=== PATIENT | female | born 1995 | race Caucasian/White ===

== ENCOUNTER 2022-10-14 21:09 | Emergency (ER) | payer OTHER, SELFPAY ==
[2022-10-14 21:15] VITALS: BP 122/79; PULSE 111; TEMP 36.8; O2SAT 98; BMI 20.7
--- NOTE | 2022-10-14 21:25 | ED_ITS ---
HPI - General Adult General Time Seen by Provider: 21:26 Date Seen: 10/14/22 Chief complaint: Sore Throat Stated complaint: sore throat, a lot of pressure in her head. Time Seen by Provider: 10/14/22 21:17 Source: patient and RN notes reviewed Mode of arrival: ambulatory Limitations: no limitations History of Present Illness HPI narrative: Patient is a very pleasant 27-year-old female coming in with a severe sore throat. She states it is hurting to swallow. This morning she just started with a scratchy throat. She has maybe felt chilled during the day but not clear if she has had fevers. She has been in and out of cars, going in out of vehicles into the cold. Has taken a total of 4 Tylenol during the day. No nausea or vomiting, no abdominal pain, is not coughing. She feels pressure in her head. She is getting some postnasal drainage. She confirmed negative status this morning. She and her significant other do not want to conceive until they are . Is on control as well. Related Data Home Medications Medication Instructions Recorded Confirmed control 10/14/22 sumatriptan succinate 100 mg 100 mg PO Q2H PRN 10/14/22 10/14/22 tablet (Imitrex) sumatriptan succinate 6 mg/0.5 mL 6 mg subcut Q1-4H PRN 10/14/22 10/14/22 subcutaneous solution (Imitrex) Allergies Allergy/AdvReac Type Severity Reaction Status Date / Time No Known Drug Allergies Allergy Verified 10/14/22 21:21 Review of Systems Status of ROS: Reports: 6 or more systems reviewed and unremarkable except as noted in History and below Exam Const: Vital Signs, click to edit/add: Vital Signs - 24 hr 10/14/22 21:15 Temperature 98.2 F Pulse Rate [Pulse Oximeter] 111 H Blood Pressure [Ri ght Upper Arm] 122/79 Pulse Oximetry 98 Oxygen Delivery Me thod Room Air Documenting provider has reviewed patient's vital signs: yes Common normals: no apparent distress (but uncomfortable with swallowing, speech otherwise normal), oriented x3, no limitations, healthy appearing and alert General appearance: cooperative, comfortable, well kempt and well developed Nutritional appearance: thin HENMT: Common normals: normocephalic, head/scalp atraumatic, hearing grossly normal bilaterally, external ears normal, external nose normal, nasal mucous membranes and turbinates normal, moist oral mucous membranes, oropharynx normal, dentition normal and gingiva normal Head and scalp: normocephalic and atraumatic Nose: external nose normal and nasal mucous membranes and turbinates normal External ear: external ears normal Other: Maybe some minimal tonsillar erythema but certainly not any significant enlargement, no exudates. Eye: Common normals: PERRL, EOMs intact bilaterally, conjunctivae normal and no scleral icterus Conjunctiva: conjunctiva(e) normal Pupil: PERRL Neck & C-Spine: Common normals: full ROM, no lymphadenopathy, supple, no meningeal signs, no JVD and thyroid normal Thyroid: thyroid normal Resp: Common normals: normal respiratory effort, no retractions, no use of accessory muscles and clear to auscultation bilaterally Auscultation: clear to auscultation bilaterally Cardio: Common normals: no JVD, regular rate, regular rhythm, S1 normal heart sound, S2 normal heart sound, no gallops, no clicks and no murmurs Rate: regular rate Rhythm: regular rhythm Heart sounds: S1 normal and S2 normal Neuro: Common normals: oriented x3 Sensorium/orientation: alert Meningeal signs: no meningeal signs Psych: Appearance: well kempt Course Course Hospital Course: Patient states her throat is quite uncomfortable. She is no concerning clinical features tonsillitis. I will establish an IV, give her L of normal saline and 15 mg IV Toradol. Nursing staff collected strep DNA as well as the viral triple swab on arrival. Will do some basic blood work since we are initiating an IV for her. Reevaluation(s) Reevaluation #1: Reviewed with patient that her strep is negative, white blood count is elevated. I am awaiting her triple swab but presume this will be negative. With her elevated white count and clinical course, at this time I suspect she is developing tonsillitis. She is starting to have some almost tremors in her legs. She is starting to feel warm. I do wonder if she is maybe perhaps going to spike a temperature. She is almost done with the IV fluids, does not feel chilled, does not feel that she is chilled and that she is shivering at all. If triple swab is negative, will proceed with an IV dose of antibiotics, Unasyn 3 g and dexamethasone 10 mg IV. Time: 22:28 Reevaluation #2: Have reviewed lab results with patient. I do believe we are dealing with acute bacterial tonsillitis. This time she does not require any imaging. We will do plan as outlined before. She would like prescription of Augmentin from [facility] which we will provide. Time: 22:43 Vital Signs Vital signs: Initial Vital Signs Temperature 98.2 F 10/14/22 21:15 Temperature Source Temporal Artery Scan 10/14/22 21:15 Pulse Rate 111 H 10/14/22 21:15 Blood Pressure 122/79 10/14/22 21:15 Blood Pressure Mean 93 10/14/22 21:15 Blood Pressure Position Sitting 10/14/22 21:15 Pulse Oximetry 98 10/14/22 21:15 Oxygen Delivery Method 10/14/22 21:15 Vital Signs Temperature 98.2 F 10/14/22 21:15 Pulse Rate 111 H 10/14/22 21:15 Blood Pressure 122/79 10/14/22 21:15 Pulse Oximetry 98 10/14/22 21:15 Oxygen Delivery Method 10/14/22 21:15 Temperature 98.2 F 10/14/22 21:15 Pulse Rate 111 H 10/14/22 21:15 Blood Pressure 122/79 10/14/22 21:15 Pulse Oximetry 98 10/14/22 21:15 Oxygen Delivery Method 10/14/22 21:15 Medical Decision Making Lab Data Lab results reviewed: Yes I reviewed the patient's lab results Labs: Lab Results 10/14/22 10/14/22 10/14/22 Range/Units 21:25 21:25 21:45 WBC 14.81 H (4.50-11.00) K/uL RBC 4.54 (4.00-5.20) m/uL Hgb 13.7 (12.0-16.0) gm/dL Hct 39.0 (33.0-51.0) % MCV 86 (80-100) fL MCH 30 (26-34) pg MCHC 35 (32-36) gm/dL RDW Coeff of Isidro 11.6 (11.5-15.5) % Plt Count 338 (140-440) K/uL Neut % (Auto) 71.4 (42.0-72.0) % Lymph % (Auto) 20.2 (20-44) % Mckenzie % (Auto) 6.6 (0.0-11.0) % Eos % (Auto) 1.0 (0.0-7.0) % Baso % (Auto) 0.3 (0.0-3.0) % Neut # (Auto) 10.60 H (1.7-7.0) K/uL Lymph # (Auto) 3.00 H (0.90-2.90) K/uL Mckenzie # (Auto) 1.00 H (0.00-0.90) K/UL Eos # (Auto) 0.10 (0.00-0.50) K/uL Baso # (Auto) 0.00 (0.00-0.30) K/uL Abs Immat Gran (auto) 0.10 (0.00-0.30) K/uL Imm/Tot Granulo (auto) 0.5 % Sodium (135-149) mmol/L Potassium (3.6-5.1) mmol/L Chloride (96-114) mmol/L Carbon Dioxide (20-32) mmol/L BUN (5-24) mg/dL Creatinine (0.5-1.5) mg/dL Estimated Creat Clear Estimated GFR ml/min Glucose (60-115) mg/dL Calcium (8.4-10.6) mg/dL SARS-CoV-2 (PCR) Negative SARS-CoV-2 (Negative) Monoscreen (Negative) Influenza Type A (PCR) Negative PCR FLU A (Negative) Influenza Type B (PCR) Negative PCR FLU B (Negative) RSV (PCR) Negative PCR RSV (Negative) Group A Strep DNA NOT DETECTED (Not Detectd) 10/14/22 10/14/22 Range/Units 21:45 21:45 WBC (4.50-11.00) K/uL RBC (4.00-5.20) m/uL Hgb (12.0-16.0) gm/dL Hct (33.0-51.0) % MCV (80-100) fL MCH (26-34) pg MCHC (32-36) gm/dL RDW Coeff of Isidro (11.5-15.5) % Plt Count (140-440) K/uL Neut % (Auto) (42.0-72.0) % Lymph % (Auto) (20-44) % Mckenzie % (Auto) (0.0-11.0) % Eos % (Auto) (0.0-7.0) % Baso % (Auto) (0.0-3.0) % Neut # (Auto) (1.7-7.0) K/uL Lymph # (Auto) (0.90-2.90) K/uL Mckenzie # (Auto) (0.00-0.90) K/UL Eos # (Auto) (0.00-0.50) K/uL Baso # (Auto) (0.00-0.30) K/uL Abs Immat Gran (auto) (0.00-0.30) K/uL Imm/Tot Granulo (auto) % Sodium 142 (135-149) mmol/L Potassium 4.4 (3.6-5.1) mmol/L Chloride 108 (96-114) mmol/L Carbon Dioxide 26 (20-32) mmol/L BUN 11 (5-24) mg/dL Creatinine 0.6 (0.5-1.5) mg/dL Estimated Creat Clear 131.37 Estimated GFR 128 ml/min Glucose 91 (60-115) mg/dL Calcium 9.3 (8.4-10.6) mg/dL SARS-CoV-2 (PCR) (Negative) Monoscreen Negative (Negative) Influenza Type A (PCR) (Negative) Influenza Type B (PCR) (Negative) RSV (PCR) (Negative) Group A Strep DNA (Not Detectd) Critical Care Time Critical Care Time Critical Care Time: No Discharge Plan Discharge Clinical Impression: Acute tonsillitis Patient Disposition: Home, Self-Care Condition: Stable Instructions: Tonsillitis (ED) Additional Instructions: Start oral antibiotic in the morning. Alternate Tylenol and ibuprofen every 3-4 hours as needed for pain or fever control, follow bottle directions for dosing. If you are not improving over the next few days, are worsening at any point with increasing difficulty swallowing, increased throat swelling or pain, do need to be re-evaluated. Try to take frequent small sips of fluids to stay hydrated. Note provided to be off work tomorrow. Recommend follow-up with primary care provider within the next week for recheck. If on going issues or complications, may need to see ENT. Activity Level: Activity as Tolerated Discharge Diet: Regular Prescriptions: No Action control sumatriptan succinate [Imitrex] 100 mg tablet 100 mg PO Q2H PRN Rx Instructions: do not exceed 2 doses per 24 hrs sumatriptan succinate [Imitrex] 6 mg/0.5 mL solution 6 mg subcut Q1-4H PRN Rx Instructions: do not exceed 2 doses in a 24 hour period Stand Alone Forms: MyHealth Info Instructions
[2022-10-14] MEDS: 0.9 % SODIUM CHLORIDE 1000 ml 1,000 ML 500 ML IV (21:56)
[2022-10-14] MEDS: KETOROLAC 15 MG/ML inj IVP (21:56)
[2022-10-14 22:01] LABS: Basophils Percent Auto 0.3 % (0.0-3.0); Hemoglobin* 13.7 gm/dL (12.0-16.0); Immature Granulocytes Pct Auto 0.5 %; Lymphocytes Percent Auto 20.2 % (20-44); Mean Corpuscular HGB Conc 35 gm/dL (32-36); Mean Corpuscular Hemoglobin 30 pg (26-34); Mean Corpuscular Volume 86 fL (80-100); Monocytes Percent Auto 6.6 % (0.0-11.0); Neutrophils Percent Auto 71.4 % (42.0-72.0); Platelet Count* 338 K/uL (140-440); RDW Coefficient of Variation % 11.6 % (11.5-15.5); Red Blood Count 4.54 m/uL (4.00-5.20); White Blood Count* 14.81 K/uL (4.50-11.00)
--- OUTSIDE RECORDS SUMMARY | 2022-10-14 22:03 | XMS_ITS | Encounter Summary ---
:1995 [facility] Address [address] [place] [address] Care Team Providers Name Role Phone Pcp, Pt Declines MD Primary Care Provider Reason for Referral Consult/Transfer Care (Routine) - Closed Specialty Diagnoses / Procedures Referred By Contact Refer red To Contact Diagnoses Kourtney Lovelace MD, PhD [address] [place], [place] [address] Referral ID Status Reason Start Date Expiration Date Visits Requ ested Visits Authorized [id number] Closed 03/11/2021 06/10/2022 1 1 Scheduling Instructions Your provider has recommended an appoint ment with [facility]. You may call [phone] to schedule your appoi ntment. We suggest you call your health insurance company about your coverage an d benefits for this appointment. Reason for Visit Reason Comments NAIL PROBLEM Consult/Transfer Care (Routine) - Closed Specialty Diagnoses / Procedures Referred By Contact Refer red To Contact Dermatology Diagnoses Fingernail problem Kourtney Obrien MD, PhD [address] [facility] [address] Phone: Fax: Referral ID Status Reason Start Date Expiration Date Visits Requ ested Visits Authorized [id number] Closed 02/03/2021 05/05/2022 1 1 Encounter Details Date Type Department Care Team Description 03/04/2021 Office Visit [facility] [address] Kourtney Obrien MD, Fib rickie (Primary Dx) Dermatology PhD [address] [facility] [address] [place] [id number] [phone] (Wo rk) Social History Tobacco Use Types Packs/Day Years Used Date Smoking Tobacco: Never Alcohol Use Standard Drinks/Week Comments Yes 0 (1 standard drink = 0.6 oz pure alcoho l) occasional Sex Assigned at Date Recorded Not on file documented as of this encounter Patient Instructions Patient InstructionsKourtney Obrien MD, PhD - 03/04/2021 9:30 AM CDT After visit instructions for Chronic Paronychia Apply betamethasone cream once daily to nail folds. Stop betamethasone cream when red/puffiness is completely gone- usually takes 2- 6 weeks. Soak nails in vinegar for 15 min every night prior to applying the medicated cream. May use straightvinegar or 1 cap/1 cup water. While safe to do, it is ok to stop this step when you see the nail cuticle has re-grown and makes a nice, even seal between your finger and the nail plate. documented in this encounter Progress Notes Kourtney Obrien MD, PhD - 03/04/2021 9:30 AM CDT Problem List None Chief Complaint Patient presents with ??? NAIL PROBLEM History of Present Illness: Chyna Esquivel is a 25 y.o. female who presents for visit today for a nail problem. Patient is new to [facility]. The patient was referred to dermatology by Dr. Gallo for possible recommendations any less invasive treatment options worth exploring before proceeding with matrixectomy. Today, the patient reports a left thumbnail problem that she has had for 2-3 years. It is painful today and catches on everything. It drains intermittently, at which time an infection will often set in. At that time, she will usually rip the spike off which helps for about 2 weeks. However, it will then come back and be more severe. No other acute skin concerns. Past Medical History: Chronic nail problem. Social History: She is a high school teacher. She is moving to [facility] this summer 2020 with her boyfriend, who got ajjudy there. Medications: The patient has a current medication list which includes the following prescription(s): betamethasone dipropionate, lorazepam, nortrel (), sumatriptan, and sumatriptan. Allergies: The patient is allergic to latex, adhesive, lubricants, and morphine. Review of Systems: Generally feels well without other skin concerns today. Physical Examination: General: Well-appearing female, in no distress, alert and oriented. Skin: Exam focused to the left thumb. Pertinent findings included below. Exam otherwise normal Combined Exam and Specific Assessment and Plan 1. 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 Prior history of acute paronychia but not present today - 2 mm thin finger like spicule extending along the lateral aspect of the nail fold on the left thumb - mild erythema and swelling at the base of the proximal nail fold without drainage or evidence of secondary abscess. Discussed etiology and expectations at length with the patient. Reviewed with her that these typically are recurrent, and hand recurred even after surgical resection. She is aware that any procedure ofthe plate would necessarily within the overall width of her nail plate are . We reviewed the risks and benefits of surgery and the patient understands that there is still of risk of recurrence with surgery, however, it is much lower. She also understands that there will be nail damage from the surgery, but she would prefer this over the chronic pain. Additionally, based on her history and clinical appearance, the likelihood of skin cancer is very low, however, the benefit of removing what is expected to be a benign nature is confirming its histological nature. We discussedthat she would prefer to get into surgery as soon as possible, before the nail becomes infected. If Dr. Gallo does not have an opening in the coming weeks, she will call and I will place a referralto hand surgery to see if they can get her in sooner. Photos were obtained today. In the meantime, Iadvised she soak her thumb in white or apple cider vinegar plain or in a 1:1 ratio with water daily for 15 minutes to prevent infection. I also started her on betamethasone dipropionate 0.05% augmentedcream to use qd on the affected nail fold. Discussed risks of topical steroids including striae, atrophy, and telangectasias. Follow up: Return to clinic prn. Orders Placed: Orders Placed This Encounter ??? betamethasone dipropionate (DIPROLENE-AF) 0.05 % AUGMENTED cream Scribe Disclosure: I, Sherri Kassy Munroe, am serving as a scribe to document services personally performed by Kourtney Obrien MD, PhD at this visit, based upon the providers statements to me. Entered on 03/04/21 at 10:06 AM. This note was dictated using voice recognition software. There may be sound- alike and/or punctuationerrors. Shannan Cheek RN - 03/04/2021 9:30 AM CDT Images from the original note were not included. Sharon Cherry RN - 03/04/2021 9:30 AM CDT Patient called and would like referral placed to hand surgery within the [facility] system. Order pended. documented in this encounter Plan of Treatment Scheduled Referrals Name Type Priority Associated Diagnoses Order S chedule Hand Surgery Referral Routine Fibroma Ordered: 2020 Consult-Adult/Peds documented as of this encounter Visit Diagnoses Diagnosis Fibroma - Primary Other benign neoplasm of connective and other soft tissue of unspecified site documented in this encounter Care Teams Cnc Technician Relationship Specialty Start Date End Date Pcp, Khanh Acevedo MD PCP - General 03/04/21 [place] [address] documented as of this encounter
--- OUTSIDE RECORDS SUMMARY | 2022-10-14 22:03 | XMS_ITS | Clinical Summary ---
:1995 Author Organization [facility] Address [address] [place] [address] Care Team Providers Name Role Phone Pcp, Pt Declines MD Primary Care Provider Source Comments You are receiving this document as you are listed as the primary care provider,follow-up provider, or the patient has been referred to you for consultation.This is in compliance with the Medicare and Medicaid EHR Incentive Program,which states Providers who transition their patient to another setting of careor provider of care or refers their patient to another provider of care shouldprovide summarycare record for each transition of care or referral. BuyerCurious Allergies Active Allergy Reactions Severity Noted Date Comments Adhesive Rash 12/20/2019 Latex Hives High 12/20/2019 Lubricants Rash 12/20/2019 Petroleum jelly ok Morphine Other, see comments 12/20/2019 hallucin ates Medications Medication Sig Dispensed Refills Start Date End Date Status SUMAtriptan Take 100 mg by mouth 0 Active (IMITREX) 100 MG as needed for tablet Migraine. SUMAtriptan Inject 6 mg 0 Active (IMITREX) 6 MG/0.5ML subcutaneously once injection as needed. LORazepam (ATIVAN) Take 0.5 mg by mouth 0 12/16/2020 Active 0.5 MG tablet daily. NORTREL 1/35, 21, 0 02/11/2021 A ctive 1-35 MG-MCG tablet betamethasone Apply topically 50 g 0 03/04/2021 Active dipropionate daily. To affected (DIPROLENE-AF) 0.05 nail fold, until % AUGMENTED cream redness. Social History Tobacco Use Types Packs/Day Years Used Date Smoking Tobacco: Never Alcohol Use Standard Drinks/Week Comments Yes 0 (1 standard drink = 0.6 oz pure alcoho l) occasional Sex Assigned at Date Recorded Not on file Last Filed Vital Signs Vital Sign Reading Time Taken Comments Blood Pressure 100/68 12/20/2019 9:39 PM [facility] Pulse 74 12/20/2019 9:37 PM [facility] Temperature 38.8 ??C (101.9 ??F) 12/20/2019 9:37 PM [facility] Respiratory Rate 16 12/20/2019 9:37 PM [facility] Oxygen Saturation 96% 12/20/2019 9:37 PM [facility] Inhaled Oxygen Concentration - - Weight 56.7 kg (125 lb) 12/20/2019 8:52 PM [facility] Height - - Body Mass Index - - Plan of Treatment Health Maintenance Due Date Last Done Comments Cervical Cancer Screening Due 1995 Chlamydia 1995 Hep C Screening (Preventive 1995 Services) HepB (1) 1997 COVID-19 Vaccine (#1) 1997 HPV Vaccine (1 - 2-dose series) 2008 HIV Screening (Preventive 2013 Services) Adult Preventive Visit 2015 DTaP/Tdap/Td (1 - Tdap) 2016 Influenza (#1) 2022 Zoster/Shingles (1 of 2) 2047 HepA Aged Out No longer eligib le based on patient's age to complete this topic Hib Aged Out No longer eligib le based on patient's age to complete this topic IPV (Polio) Aged Out No longer eligib le based on patient's age to complete this topic MCV4 Aged Out No longer eligib le based on patient's age to complete this topic Pneumococcal Aged Out No longer eligib le based on patient's age to complete this topic Insurance Payer Benefit Plan Subscriber ID Effective Phone Address Typ e / Group Dates [facility] [id number] 2020-Isabella [phone] [facility] [address] [place] [id number] [place] [id number] Chyna Esquivel Personal/Family Self 1995 [id number] [place] [id number] Care Teams Dextrine Mixer Relationship Specialty Start Date End Date Pcp, Khanh Acevedo MD PCP - General 03/04/21 [place] [address]
--- OUTSIDE RECORDS SUMMARY | 2022-10-14 22:03 | XMS_ITS | Encounter Summary ---
:1995 Author Organization [facility] Address [address], [place] [address] Care Team Providers Name Role Phone Pcp, Pt Declines Primary Care Provider Reason for Visit Reason Onset Date Comments Other FYI 03/11/2021 Encounter Details Date Type Department Care Team Description 03/11/2021 Telephone [facility] Kourtney Obrien MD, PhD Other; [facility] [address] [facility] [facility] [address] [place] [address] [place], [place] [address] [phone] Social History Tobacco Use Types Packs/Day Years Used Date Smoking Tobacco: Never Alcohol Use Standard Drinks/Week Comments Yes 0 (1 standard drink = 0.6 oz pure alcoho l) occasional Sex Assigned at Date Recorded Not on file documented as of this encounter Nursing Notes Shannan Cheek RN - 03/11/2021 3:53 PM CDT Called and discussed. Pt said doing the procedure with Dr. Gallo is not an option. Referral was placed to hand surgery. Pt understands that it will take 2 - 3 days before getting a call to schedule. Pt was given the number to orthopedics to call if she has not heard by Wednesday. Kourtney Obrien MD, PhD - 03/11/2021 3:29 PM CDT I'm not sure I understand the message. Is she looking for a appointment here with derm for discomfort? I'm happy to work her in. If she is really asking for the definitive surgery on her thumb, the hand surgery consult was already placed this am. Lucina Olguin RN - 03/11/2021 2:53 PM CDT Derm Triage of Telephone Call Last Derm Visit: Date: 03/04/2021 Clinician: Dr. Obrien Follow-up interval per last visit note: Return to clinic PRN Next Derm Visit: There are no future appointments scheduled for this specialty. Date(s) of failed/cancelled Derm appt: 02/04/2021 Name of Caller: Chyna Situation: : Dr. Gallo office called [facility] and told them they have no openings in the next couple weeks. Background: The patient was referred to dermatology by Dr. Gallo for possible recommendations any less invasive treatment options worth exploring before proceeding with matrixectomy. Patient reports a left thumbnail problem that she has had for 2-3 years. It is painful today and catches on everything. It drains intermittently, at which time an infection will often set in. At that time, she will usually rip the spike off which helps for about 2 weeks. However, it will then come back and be more severe. From clinical note on 03/04/2021 We discussed that she would prefer to get into surgery as soon as possible, before the nail becomes infected. If Dr. Gallo does not have an opening in the com ing weeks, she will call and I will place a referral to hand surgery to see if they can get her in sooner. Assessment: Dr. Gallo office called [facility] and told them they have no openings in the next couple weeks. Triage recommendations given to the patient: Will route note to MD If appointment is needed: Appointment options discussed with the patient, including offfering first available appt with previously seen clinician, and if appropriate, offering first available appt with any derm clinician. Action needed from clinician: Did you want to place a referral to hand surgery to see if they can get her in sooner? Pharmacy updated in Meds/Orders:yes Call Back Number if needed: [phone] Message OK: yes documented in this encounter Plan of Treatment Not on filedocumented as of this encounter Visit Diagnoses Not on filedocumented in this encounter Care Teams Smoking Pipe Driller And Threader Relationship Specialty Start Date End Date Pcp, Khanh Acevedo MD PCP - General 03/04/21 [place] [address] documented as of this encounter
[2022-10-14 22:04] LABS: Strep A DNA Probe* NOT DETECTED (Not Detectd)
--- OUTSIDE RECORDS SUMMARY | 2022-10-14 22:04 | XMS_ITS | Encounter Summary ---
:1995 Author Organization [employer] Address [address] [address] Phone Care Team Providers Name Role Phone Gregg Augustine MD Primary Care Provider Reason for Visit Reason Comments Migraine Encounter Details Date Type Department Care Team Description 11/02/2021 Emergency [facility] [place], Keanu Nickerson, Other migraine EMERGENCY DEPARTMENT MD without status [address] [place], [place] [address] [place] [address] intractable (Primary [phone] (Wo rk) Dx) Social History Tobacco Use Types Packs/Day Years Used Date Smoking Tobacco: Never Assessed Sex Assigned at Date Recorded Not on file Job Start Date Occupation Industry Not on file Not on file Not on file COVID-19 Exposure Response Date Recorded In the last month, have you been in contact with No / Unsure 11/02/2021 11:25 AM [employer] someone who was confirmed or suspected to have Coronavirus / COVID-19? documented as of this encounter Last Filed Vital Signs Vital Sign Reading Time Taken Comments Blood Pressure 117/81 11/02/2021 2:38 PM [employer] Pulse 72 11/02/2021 2:38 PM [employer] Temperature 36.7 ??C (98.1 ??F) 11/02/2021 11:54 AM [employer] Respiratory Rate 20 11/02/2021 11:54 AM [employer] Oxygen Saturation 100% 11/02/2021 11:54 AM [employer] Inhaled Oxygen Concentration - - Weight - - Height - - Body Mass Index - - documented in this encounter Discharge Instructions AttachmentsThe following attachments cannot be sent through Care Everywhere. Headache, Migraine, Classic (Romanian)documented in this encounter Medications at Time of Discharge Medication Sig Dispensed Refills Start Date End Date SUMAtriptan (Imitrex) 100 Take 100 mg by mouth 0 MG tabletIndications: one time as needed Migraine, yesterday for Migraine. Dose may be repeated after 2 hours. Do not exceed 200 mg in 24 hours Indications: Migraine Headache, yesterday Acetaminophen (Tylenol) Take 650 mg by mouth. 0 325 MG CapsuleIndications: Indications: 0700 0700 [id number]-[id number] Buffered Take 1 Tablet by 0 (Vanquish) 227-194-33 MG mouth. Indications: TabletIndications: 0700 0700 documented as of this encounter Discharge Disposition Disposition Code Departure Means Destination Home and/or Self [facility] documented in this encounter ED Notes Keanu Guthrie MD - 11/02/2021 1:03 PM CST Images from the original note were not included. Patient: Chyna Esquivel Means of Arrival: Car Chief Complaint: Migraine History of Present Illness: HPI 26-year-old female presents emergency department chief complaint of headache. She reports onset of symptoms over the past month that she has been getting increasing migraines. This current migraine haslasted the past 3 days. She describes it as bilateral frontal type headache with radiation into the back. Feels similar to previous migraines just more intense. Denies fevers or chills. No neck pain. No abdominal pain nausea or vomiting. She reports that migraines have not responded to Imitrex or vanquish at home. 5 said to come into the emergency department for evaluation. Has not had to come to theemergency department in the past for migraines. Review of Systems: Review of Systems Constitutional: Negative for chills and fever. HENT: Negative for congestion, rhinorrhea and sore throat. Eyes: Negative for visual disturbance. Respiratory: Negative for cough and shortness of breath. Cardiovascular: Negative for chest pain. Gastrointestinal: Negative for diarrhea and vomiting. Genitourinary: Negative for difficulty urinating, dysuria and flank pain. Musculoskeletal: Negative for arthralgias. Skin: Negative for rash. Neurological: Negative for weakness, numbness and headaches. Hematological: Does not bruise/bleed easily. Allergies Allergen Reactions ??? Adhesive Tape RASH ??? Latex RASH Prior to Admission Medication List Acetaminophen (Tylenol) 325 MG Capsule Take 650 mg by mouth. Indications: 0700 [id number]-Iojd Buffered (Vanquish) 227-194-33 MG Tablet Take 1 Tablet by mouth. Indications: 0700 SUMAtriptan (Imitrex) 100 MG tablet Take 100 mg by mouth one time as needed for Migraine. Dose may be repeated after 2 hours. Do not exceed 200 mg in 24 hours Indications: Migraine Headache, yesterday Past Medical History: No past medical history on file. Past Surgical History: No past surgical history on file. Family History: No family history on file. Social History: Social History Tobacco Use ??? Smoking status: Not on file ??? Smokeless tobacco: Not on file Substance Use Topics ??? Alcohol use: Not on file ??? Drug use: Not on file Social History Substance and Sexual Activity Drug Use Not on file Exam: Initial Vitals Most Recent Vitals Temp: 98.1 ??F (36.7 ??C) (11/02/21 1154) Temp: 98.1 ??F (36.7 ??C) (11/02/21 1154) Pulse: 68 (11/02/21 1151) Pulse: 72 (11/02/21 1438) Resp: 20 (11/02/21 1154) Resp: 20 (11/02/21 1154) BP: 118/84 (11/02/21 1151) BP: 117/81 (11/02/21 1438) SpO2: 100 % (11/02/21 1154) SpO2: 100 % (11/02/21 1154) Physical Exam: Physical Exam Vitals and nursing note reviewed. Constitutional: Appearance: Normal appearance. HENT: Head: Normocephalic and atraumatic. Right Ear: External ear normal. Left Ear: External ear normal. Nose: Nose normal. No rhinorrhea. Mouth/Throat: Mouth: Mucous membranes are moist. Eyes: Extraocular Movements: Extraocular movements intact. Conjunctiva/sclera: Conjunctivae normal. Pupils: Pupils are equal, round, and reactive to light. Cardiovascular: Rate and Rhythm: Normal rate and regular rhythm. Pulses: Normal pulses. Pulmonary: Effort: Pulmonary effort is normal. Breath sounds: Normal breath sounds. Abdominal: General: Abdomen is flat. Musculoskeletal: Cervical back: Normal range of motion. No rigidity or tenderness. Lymphadenopathy: Cervical: No cervical adenopathy. Skin: Findings: No rash (no rash noted on exposed skin). Neurological: General: No focal deficit present. Mental Status: She is alert. Gait: Gait is intact. Psychiatric: Mood and Affect: Mood normal. Lab Results: No results found for this visit on 11/02/21. Imaging Results: Imaging Results None Emergency Department Course: Patient seen examined upon arrival emergency department. IV access was obtained. Normal saline bolus was given. Compazine Toradol and Benadryl were given IV. Patient was placed in a quiet room and allowed to rest. Recheck of patient shows headache to be resolving. Medications sodium chloride 0.9% BOLUS BAG 1,000 mL (0 mL Intravenous Stopped 11/02/21 1442) prochlorperazine (COMPAZINE) injection 10 mg (10 mg IV Push Given 11/02/21 1309) ketorolac (TORADOL) injection 15 mg (15 mg IV Push Given 11/02/21 1307) diphenhydrAMINE (Benadryl) injection 50 mg (50 mg IV Push Given 11/02/21 1306) Procedures: Procedures Assessment: Other migraine without status migrainosus, not intractable (primary encounter diagnosis) 26-year-old female with history of migraine headaches who presents with acute exacerbation of chronic migraine headaches. Was treated with IV medications here in the emergency department with near complete resolution of her migraine headache. Plan will be to discharge her to home. Symptomatic treatment as needed. Follow-up with regular for recheck or return to the emergency department if worsening symptoms. Plan: Discharge Prescriptions None MDM Disposition: ED Disposition ED Disposition Condition Comment Discharge Stable Remember, your care today was on an emergency basis and treatment was not intendedto be a substitute for ongoing medical care from your primary care physician. If you came to the Emergency Room for treatment of a wound, sore, or cut of some sort AND/OR if you have had an injection, an IV treatment or blood drawn, please watch that area carefully for the following signs of infection and seek professional medical treatment immediately: Redness, pain, swelling,or drainage at the site, or you d evelop a fever greater than 100 degrees Fahrenheit measured orally. If you had a lab, xray, or other tests while in the ED please review with your primary doctor. Keanu Guthrie MD 11/02/21 1506 [employer] Barbara Kapoor RN - 11/02/2021 11:45 AM CST Patient has hx of migraines - recently they have been 2 time a week from 2 times a month. Patient has tried Imitrex prior to today , tylenol and vanquish this am. [employer] Dedra Dyer RN - 11/02/2021 11:24 AM CST Day 3 of migraine. Has tried imitrex with no relief. [employer] documented in this encounter Plan of Treatment Not on filedocumented as of this encounter Visit Diagnoses Diagnosis Other migraine without status migrainosu s, not intractable - Primary documented in this encounter Administered Medications Inactive Administered Medications Medication Order MAR Action Action Date Dose Rate Site diphenhydrAMINE (Benadryl) Given 11/02/2021 1:06 PM [employer] 50 mg injection 50 mg 50 mg, IV Push, ONCE, 1 dose, On 11/02/21 at 1300 ketorolac (TORADOL) injection 15 mg Given 11/02/2021 1:07 PM [employer] 15 mg 15 mg, IV Push, ONCE, 1 dose, On 11/02/21 at 1300 prochlorperazine (COMPAZINE) injection 1 0 mg Given 11/02/2021 1:09 PM [employer] 10 mg 10 mg, IV Push, ONCE, 1 dose, On 11/02/21 at 1300 sodium chloride 0.9% BOLUS BAG New Bag 11/02/2021 1:03 PM [employer] 1,000 mL 1000 mL/hr 1,000 mL 1,000 mL, Intravenous, at 1,000 mL/hr, ONCE, 1 dose, On 11/02/21 at 1300 documented in this encounter Historical Medications This list may reflect changes made after this encounter. Medication Sig Dispensed Refills Start Date End Date [id number] Buffered Take 1 Tablet by 0 (Vanquish) 227-194-33 MG mouth. Indications: TabletIndications: 0700 0700 Acetaminophen (Tylenol) Take 650 mg by mouth. 0 325 MG CapsuleIndications: Indications: 0700 0700 SUMAtriptan (Imitrex) 100 Take 100 mg by mouth 0 MG tabletIndications: one time as needed Migraine, yesterday for Migraine. Dose may be repeated after 2 hours. Do not exceed 200 mg in 24 hours Indications: Migraine Headache, yesterday added in this encounter Active and Recently Administered Medications Times are shown in [employer]. Scheduled Medication Order 10/31/2021 11/01/2021 11/02/2021 diphenhydrAMINE (Benadryl) injection 50 mg (COMPLETED) 1306 (Given - Provider: Flavia Obrien RN) 50 mg, IV Push, ONCE, 1 dose, On 11/02/21 at 1300 ketorolac (TORADOL) injection 15 mg (COMPLETED) 1307 (Given - Provider: Flavia Obrien RN) 15 mg, IV Push, ONCE, 1 dose, On 11/02/21 at 1300 prochlorperazine (COMPAZINE) injection 10 mg (COMPLETED) 1309 (Given - Provider: Flavia Obrien RN) 10 mg, IV Push, ONCE, 1 dose, On 11/02/21 at 1300 sodium chloride 0.9% BOLUS BAG 1,000 mL (COMPLETED) 1303 (New Bag - Provider: Flavia Obrien RN)1442 (Stopped - Provider: Barbara Kapoor RN) 1,000 mL, Intravenous, at 1,000 mL/hr, ONCE, 1 dose, On Sun 10/09 04/28 at 1300 documented in this encounter Orders Medications Ordered That Might Not Have Count Last Ord ered Date First Ordered Date Been Administered diphenhydrAMINE (Benadryl) injection 25 mg 1 11/02 Nursing Count Last Ordered Date First Ordered Date INSERT PERIPHERAL IV 1 11/02/2021 documented in this encounter Care Teams Operating Room Surgical Technologist Relationship Specialty Start Date End Date Gregg Augustine MD PCP - General youth associate 11/02/[address] [place] [address] documented as of this encounter
--- OUTSIDE RECORDS SUMMARY | 2022-10-14 22:04 | XMS_ITS | Encounter Summary ---
:1995 Author Organization [employer] Address [address] [address] Phone Care Team Providers Name Role Phone Unavailable Primary Care Provider Unavailable Encounter Details Date Type Department Care Team Description 09/04/2019 RV Grace Conversion DARWIN Blanca Aragon, Encounter HOSPITAL EMERGENCY MD DEPARTMENT [address] [address] [place] [address] [phone] Social History Tobacco Use Types Packs/Day Years Used Date Smoking Tobacco: Never Assessed Sex Assigned at Date Recorded Not on file Job Start Date Occupation Industry Not on file Not on file Not on file documented as of this encounter Plan of Treatment Not on filedocumented as of this encounter Procedures Procedure Name Priority Date/Time Associated Comments Diagnosis CULTURE, URINE Routine 09/05/2019 1:14 AM Results for this CDT procedure are i n the results section. URINE MICROSCOPIC Routine 09/05/2019 1:14 AM Resu lts for this EXAMINATION CDT procedure are i n the results section. URINALYSIS, COMPLETE Routine 09/05/2019 1:14 AM R esults for this EXAM CDT procedure are i n the results section. URINE MICROSCOPIC Routine 09/05/2019 12:18 Result s for this EXAMINATION AM CDT procedure are i n the results section. URINALYSIS, COMPLETE Routine 09/05/2019 12:18 Res ults for this EXAM AM CDT procedure are i n the results section. documented in this encounter Results (ABNORMAL) URINE MICROSCOPIC EXAMINATION (09/05/2019 1:14 AM CDT) Analysis Performed At Patho logist Time Signature Urine WBC's 0-5 0 - 5 /hpf [facility] Urine RBC's 0-2 0 - 2 /hpf [facility] Urine OCC (A) NEG /hpf [facility] Urine Bacteria OCC (A) NEG /hpf [facility] Specimen Anatomical Collection Method Collection Time Receive d Time (Source) Location / / Volume Laterality 09/05/2019 1:14 AM 9 1:39 CDT AM CDT Narrative [facility] - 2018 1:39 AM CDT Moderate or greater Epithelial cells will not reflex for culture due to probable collection contamination. Recollection required for culture. The above 4 analytes were performed by [facility] [address] [place] [address] [phone] Philly Ennis MD EC URINE ORDERABLES Performing Organization Address City/State/ZIP Code Phon e Number [facility] [address] [place] [address] [phone] (ABNORMAL) URINALYSIS, COMPLETE EXAM (09/05/2019 1:14 AM CDT) Patholo gist Method Time Signature Urine Specific 1.010 1.005 - [facility] [place] [facility] Urine pH 7.0 5.0 - 8.0 [facility] Urine Leukocyte TR (A) neg [facility] Urine Nitrates neg neg [facility] Urine Protein neg neg [facility] Urine Glucose neg neg [facility] Urine Ketones neg neg [facility] Urine norm norm mg/dL [facility] Urine Bilirubin neg neg [facility] Urine Blood + (A) neg [facility] UA Color PL.YEL [facility] Urine Appearance CLEAR [facility] Specimen Anatomical Collection Method Collection Time Receive d Time (Source) Location / / Volume Laterality 09/05/2019 1:14 AM 9 1:38 CDT AM CDT Narrative [facility] - 2018 1:38 AM CDT The above 12 analytes were performed by [facility] [address] [place] [address] [phone] Philly Ennis MD EC URINE ORDERABLES Performing Organization Address [facility] Phon e Number [facility] [address] [place] [phone] CULTURE, URINE (09/05/2019 1:14 AM CDT) athologist Signature Urine Culture Report [facility] Specimen Anatomical Collection Method Collection Time Receive d Time (Source) Location / / Volume Laterality 09/05/2019 1:14 AM 9 7:45 CDT AM CDT Narrative [facility] - 2018 7:45 AM CDT Specimen Source: Urine Specimen/Source: Urine/Urine, ??Voided Collected: 09/05/2019 01:14 Status: Final ?Last Updated: 08/10 07:45 ??Result (*) ?>100,000 cfu/ml Streptococcus-like Usual Urogenital Vi The above 1 analytes were performed by [facility] [address] [place] [address] Blanca Kraft MD EC MICROBIOLOGY - GENERAL OR DERABLES Performing Organization Address [facility] Phon e Number [facility] URINALYSIS, COMPLETE EXAM (09/05/2019 12:18 AM CDT) [facility] gist Method Time Signature Urine Specific CANCELED [facility] [place] [facility] Urine pH CANCELED [facility] Urine Leukocyte CANCELED [facility] Urine Nitrates CANCELED [facility] Urine Protein CANCELED [facility] Urine Glucose CANCELED [facility] Urine Ketones CANCELED [facility] Urine CANCELED mg/dL [facility] Urine Bilirubin CANCELED [facility] Urine Blood CANCELED [facility] UA Color CANCELED [facility] Urine Appearance CANCELED [facility] Specimen Anatomical Collection Method Collection Time Receive d Time (Source) Location / / Volume Laterality 09/05/2019 12:18 09/05/2019 1:31 AM CDT AM CDT Narrative [facility] - 2018 1:31 AM CDT The released value 1.025 was canceled by CARKAT on 09/05/2019 01:31 The released value 5.0 was canceled by Jackson DAWKINSKAT on 09/05/2019 01:31 The released value neg was canceled by Jackson DAWKINSKAT on 09/05/2019 01:31 The released value neg was canceled by C ARKAT on 09/05/2019 01:31 The released value neg was canceled by C ARKAT on 09/05/2019 01:31 The released value neg was canceled by C ARKAT on 09/05/2019 01:31 The released value TR was canceled by CA RKAT on 09/05/2019 01:31 The released value norm was canceled by CARKAT on 09/05/2019 01:31 The released value neg was canceled by C MARIZAKAT on 09/05/2019 01:31 The released value TR was canceled by CA RKAT on 09/05/2019 01:31 The released value yellow was canceled b y RATNAKAT on 09/05/2019 01:31 The released value CLEAR was canceled by CARKAT on 09/05/2019 01:31 The above 12 analytes were performed by [facility] [address] [place] [address] Blanca Kraft MD EC URINE ORDERABLES Performing Organization Address City/State/ZIP Code Phon e Number [facility] URINE MICROSCOPIC EXAMINATION (09/05/2019 12:18 AM CDT) [facility] Method Time Signature Urine WBC's CANCELED /hpf [facility] Urine RBC's CANCELED /hpf [facility] Urine CANCELED /hpf [facility] Urine Bacteria CANCELED /hpf [facility] Amorphous CANCELED /hpf [facility] Uric Acid CANCELED /hpf [facility] Calcium Oxalate CANCELED /hpf [facility] Amorphous CANCELED /hpf [facility], [facility] Triple CANCELED /hpf [facility] Phosphate CONVERSION Crystal,s Urine LAB[facility]ATORY Hippuric Acid CANCELED /hpf [facility] Leucine CANCELED /hpf [facility], [facility] Cystine CANCELED /hpf [facility], [facility] Urine Hyaline CANCELED /lpf [facility] Urine Granular CANCELED /lpf [facility] Urine Red Blood CANCELED /lpf [facility] Urine White CANCELED /lpf [facility] Urine CANCELED /lpf [facility] Urine Waxy Cast CANCELED /lpf [facility] Yeast, Urine CANCELED /hpf [facility] Urine Mucous CANCELED /hpf [facility] Specimen Anatomical Collection Method Collection Time Receive d Time (Source) Location / / Volume Laterality 09/05/2019 12:18 09/05/2019 1:35 AM CDT AM CDT Narrative [facility] - 2018 1:35 AM CDT The released value 0-5 was canceled by STACI on 09/05/2019 01:35 The released value 0-2 was canceled by Jackson FLORENTINO on 09/05/2019 01:35 Recollection request - Julianne Leong RN - Emergency Department - [facility] ??on [phone] at 0 [phone] - [id number] The released value MANY was canceled by STACI on 09/05/2019 01:35 The released value MODERATE was canceled by STACI on 09/05/2019 01:35 The above 20 analytes were performed by [facility] [address] [place] [phone] Blanca Kraft MD EC URINE ORDERABLES Performing Organization Address City/State/ZIP Code Phon e Number [facility] documented in this encounter Visit Diagnoses Not on filedocumented in this encounter
--- OUTSIDE RECORDS SUMMARY | 2022-10-14 22:04 | XMS_ITS | Encounter Summary ---
:1995 Author Organization [employer] Address [address] [place] [address] Phone Care Team Providers Name Role Phone Gregg Augustine MD Primary Care Provider Reason for Visit Reason Comments Migraine Pt presents for eval of migr mabel lasting upwards of 48 hours. Reports assoc. nausea and vomiting. Dose graves ve a hx of migraine type headaches. 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 Encounter Details Date Type Department Care Team Description 12/12/2021 Emergency [facility] Sergio Vail r migraine without EMERGENCY DEPARTMENT P, PA-C status migrainosus, not [address] [facility] [address] intractable ([place] [address] [address]) [phone] KISHA Lassiter 5511 Social History Tobacco Use Types Packs/Day Years Used Date Smoking Tobacco: Never Smokeless Tobacco: Never Alcohol Use Standard Drinks/Week Comments Yes 0 (1 standard drink = 0.6 oz pure alcoho l) Sex Assigned at Date Recorded Not on file Job Start Date Occupation Industry Not on file Not on file Not on file COVID-19 Exposure Response Date Recorded In the last month, have you been in contact with No / Unsure 12/12/2021 6:54 PM CONTAMINATED LAND CONSULTANT someone who was confirmed or suspected to have Coronavirus / COVID-19? documented as of this encounter Last Filed Vital Signs Vital Sign Reading Time Taken Comments Blood Pressure 113/70 12/12/2021 6:55 PM CONTAMINATED LAND CONSULTANT Pulse 72 12/12/2021 6:55 PM CONTAMINATED LAND CONSULTANT Temperature 36.4 ??C (97.5 ??F) 12/12/2021 6:55 PM CONTAMINATED LAND CONSULTANT Respiratory Rate 14 12/12/2021 6:55 PM CONTAMINATED LAND CONSULTANT Oxygen Saturation 100% 12/12/2021 6:55 PM CONTAMINATED LAND CONSULTANT Inhaled Oxygen Concentration - - Weight - - Height - - Body Mass Index - - documented in this encounter Discharge Instructions Discharge InstructionsGrSergio combs PA-C - 12/12/2021 8:56 PM CST Return to ER with any new or worsening symptoms. Follow-up with primary care as needed. AMINATED LAND CONSULTANT AttachmentsThe following attachments cannot be sent through Care Everywhere. Migraine Headaches, Preventing, Triggers (Romanian)documented in this encounter Medications at Time of Discharge Medication Sig Dispensed Refills Start Date End Date LORazepam (Ativan) 0.5 MG Take 0.5 mg by mouth 0 tablet every six hours as needed for Anxiety. SUMAtriptan (Imitrex) 100 Take 100 mg by mouth 0 MG tabletIndications: one time as needed Migraine, yesterday for Migraine. Dose may be repeated after 2 hours. Do not exceed 200 mg in 24 hours Indications: Migraine Headache, yesterday Acetaminophen (Tylenol) Take 650 mg by mouth. 0 325 MG CapsuleIndications: Indications: 07 07 [id number] Buffered Take 1 Tablet by 0 (Vanquish) 227-194-33 MG mouth. Indications: TabletIndications: 07 0700 documented as of this encounter Discharge Disposition Disposition Code Departure Means Destination Home and/or Self Group Home documented in this encounter ED Notes Eliud Manley RN - 12/12/2021 8:47 PM CST Pt. sleeping upon entering room. She wakes easily to voice. Migraine has improved dramatically and is requesting discharge home. AMINATED LAND CONSULTANT Sergio aVil PA-C - 12/12/2021 7:00 PM CST ED PROVIDER NOTE Name: Chyna Esquivel Date of : 1995 SUBJECTIVE: Chief Complaint: Chief Complaint Patient presents with ??? Migraine Pt presents for eval of migraine lasting upwards of 48 hours. Reports assoc. nausea and vomiting. Dose have a hx of migraine type headaches. 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 History of Present Illness: Chyna Esquivel is a very pleasant 26 year old female here for evaluation of headache patient states that she has long history of migraines. She generally gets these about once a month. She was seenhere about a month and a half ago and given Toradol Compazine and Benadryl and fluids with improvement. She states that Headache started more like a vice and now has migrated more so behind her right eye. She reports photosensitivity and nausea. She has not had a fever. No significant neck pain. Her current symptoms areconsistent with past migraines. she tried Imitrex at home without relief. Review of Systems: A complete 14-point review of systems was performed and negative unless otherwise mentioned in HPI. MEDICAL, SOCIAL, FAMILY HISTORY: Medical, social, and family history reviewed Allergies/Sensitivities: Allergies Allergen Reactions ??? Adhesive Tape RASH ??? Latex RASH Primary Care Provider: Gregg Augustine MD OBJECTIVE: Vital Signs: Blood pressure 113/70, pulse 72, temperature 97.5 ??F (36.4 ??C), temperature source Oral, resp. rate 14, SpO2 100 %. Physical Exam: GENERAL: well appearing, no acute distress, appears uncomfortable with lights dimmed HEENT: PERRL. EOMI NECK: Supple, FROM. HEART: Normal rate, regular rhythm LUNGS: No respiratory distress. NEURO: Awake and alert. Grossly intact. EXTREMITIES: No deformities appreciated. SKIN: Warm and dry. PSYCH: Appropriate mood and matching affect. Data: All laboratory data, imaging, and EKGs were interpreted independently. Recent Results (from the past 12 hour(s)) HCG, URINE QUALITATIVE Result Value Ref Range hCG, Urine Qualitative Negative Negative Imaging Results None Procedure: Procedures ED COURSE, MEDICAL DECISION MAKIN-year-old here for evaluation of a headache. Consistent with past migraines. She tried Imitrex at home without relief. Reviewed patient's past notes and she has responded well to Toradol Compazine Benadryl and fluids which will be provided here. Urine test obtained prior to giving these medicines which was negative. She has no red flag symptoms to suggest more sinister etiology.. Headache consistent with past migraines. After the above interventions, patient's headache was feeling much better and she felt comfortable with discharge. Encourage close follow-up with primary care if headaches are continuing to be a problem for her. Return precautions were discussed. They were in agreement with the plan and will follow up with their doctor as discussed. Final Clinical Impression: (G43.809) Other migraine without status migrainosus, not intractable (primary encounter diagnosis) Sergio Vail PA-C 12/12/21 8:58 PM Sergio Vail PA-C 12/12/212057 AMINATED LAND CONSULTANT documented in this encounter Plan of Treatment Not on filedocumented as of this encounter Procedures Procedure Name Priority Date/Time Associated Comments Diagnosis HCG, URINE LEE 12/12/2021 7:21 PM Results f or this QUALITATIVE CONTAM[employer]ATED LAND CONSULTANT procedure are i n the results section. documented in this encounter Results HCG, URINE QUALITATIVE (12/12/2021 7:21 PM CONTAMINATED LAND CONSULTANT) [facility] gist Method Time Signature hCG, Urine Negative Negative 12/12/2021 [place] [facility] Qualitative 7:29 PM CONTAMINATED LAND CONSULTANT [facility] Specimen Anatomical Collection Method Collection Time Receive d Time (Source) Location / / Volume Laterality Urine VOIDED URINE Non-blood 12/12/2021 7:21 PM 7:24 SPECIMEN / Unknown collection / CONTAMINATED LAND CONSULTANT PM CONTAM[employer] LAND CONSULTANT Unknown Sergio Vail PA-C EC URINE ORDERABLES Performing Organization Address City/State/ZIP Code Phon e Number [facility] [address] [place] [phone] documented in this encounter Visit Diagnoses Diagnosis Other migraine without status migrainosu s, not intractable - Primary documented in this encounter Administered Medications Inactive Administered Medications Medication Order MAR Action Action Date Dose Rate Site diphenhydrAMINE (Benadryl) Given 12/12/2021 7:34 PM CONTAMINATED LAND CONSULTANT 50 mg injection 50 mg 50 mg, IV Push, ONCE, 1 dose, On Wed12/12/21 at 1930 ketorolac (TORADOL) injection 15 mg Given 12/12/2021 7:37 PM CONTAMINATED LAND CONSULTANT 15 mg 15 mg, IV Push, ONCE, 1 dose, On Wed12/12/21 at 193 prochlorperazine (COMPAZINE) injection 1 0 mg Given 12/12/2021 7:39 PM CONTAMINATED LAND CONSULTANT 10 mg 10 mg, IV Push, ONCE, 1 dose, On Wed12/12/21 at 193 sodium chloride 0.9% BOLUS BAG New Bag 12/12/2021 7:35 PM CONTAMINATED LAND CONSULTANT 1,000 mL 1000 mL/hr 1,000 mL 1,000 mL, Intravenous, at 1,000 mL/hr, ONCE, 1 dose, On Wed12/12/21 at 1930 documented in this encounter Historical Medications This list may reflect changes made after this encounter. Medication Sig Dispensed Refills Start Date End Date LORazepam (Ativan) 0.5 MG Take 0.5 mg by mouth 0 tablet every six hours as needed for Anxiety. added in this encounter Active and Recently Administered Medications Times are shown in CONTAMINATED LAND CONSULTANT. Scheduled Medication Order 12/10/2021 12/11/2021 12/12/2021 diphenhydrAMINE (Benadryl) injection 50 mg (COMPLETED) 1933 (Given - Provider: Eliud Manley RN) 50 mg, IV Push, ONCE, 1 dose, On Wed12/12/21 at 193 ketorolac (TORADOL) injection 15 mg (COMPLETED) 1936 (Given - Provider: Eliud Manley, MILLY) 15 mg, IV Push, ONCE, 1 dose, On Wed12/12/21 at 193 prochlorperazine (COMPAZINE) injection 10 mg (COMPLETED) 1938 (Given - Provider: Eliud Manley, MILLY) 10 mg, IV Push, ONCE, 1 dose, On Wed12/12/21 at 193 sodium chloride 0.9% BOLUS BAG 1,000 mL (COMPLETED) 1934 (New Bag - Provider: Eliud Manley, MILLY)2034 (Stopped - Provider: Eliud Manley, RN) 1,000 mL, Intravenous, at 1,000 mL/hr, ONCE, 1 dose, On Wed at 1930 documented in this encounter Orders Nursing Count Last Ordered Date First Ordered Date INSERT PERIPHERAL IV 1 12/12/2021 documented in this encounter Care Teams Dental Equipment Installer And Servicer Relationship Specialty Start Date End Date Gregg Augustine MD PCP - General director of spa and guest experience 11/02/[address] [address] documented as of this encounter
--- OUTSIDE RECORDS SUMMARY | 2022-10-14 22:04 | XMS_ITS | Encounter Summary ---
:1995 Author Organization [employer] Address [address] [address] Phone Care Team Providers Name Role Phone Unavailable Primary Care Provider Unavailable Encounter Details Date Type Department Care Team Description 06/24/2017 RV Cope Conversion [facility] M, PA-C DEPARTMENT [address] [place] [address] [place] [address] [phone] Social History Tobacco Use Types Packs/Day Years Used Date Smoking Tobacco: Never Assessed Sex Assigned at Date Recorded Not on file Job Start Date Occupation Industry Not on file Not on file Not on file documented as of this encounter Plan of Treatment Not on filedocumented as of this encounter Procedures Procedure Name Priority Date/Time Associated Comments Diagnosis CHLAMYDIA Routine 06/24/2017 11:25 Results for this TRACHOMATIS/NEISSERIA PM CDT proced ure are in GONORRHOEAE MOLECULAR the re sults DETECTION section. TRICHOMONAS AND YEAST Routine 06/24/2017 11:25 Re sults for this PM CDT procedure are i n the results section. URINE MICROSCOPIC Routine 06/24/2017 10:25 Result s for this EXAMINATION PM CDT procedure are i n the results section. HCG, QUAL URINE Routine 06/24/2017 10:25 Results for this PM CDT procedure are i n the results section. URINALYSIS, COMPLETE Routine 06/24/2017 10:25 Res ults for this EXAM PM CDT procedure are i n the results section. documented in this encounter Results CHLAMYDIA TRACHOMATIS/NEISSERIA GONORRHOEAE MOLECULAR DETECTION (06/24/2017 11:25 PM CDT) [facility] Method Time Signature Chlamydia Negative Negative [facility] trachomatis [facility] N gonorrhoeae, Negative Negative [facility] PCR [facility] Specimen Anatomical Collection Method Collection Time Receive d Time (Source) Location / / Volume Laterality 06/24/2017 11:25 06/27/2017 3:07 PM CDT PM CDT Narrative [facility] - 06/27/2017 3:07 PM CDT Performed at: ??[facility] ??[id number] Foundry Operator: Jaron Wilson MD, Phone: ? ?[phone] The above 2 analytes were performed by [facility] [address] [place] [address] D,ACCT [id number],[place] [address] Padmini Milligan PA-C EC MICROBIOLOGY - GENERAL OR DERABLES Performing Organization Address City/[facility]/ZIP Code Phon e Number [facility] (ABNORMAL) TRICHOMONAS AND YEAST (06/24/2017 11:25 PM CDT) Analysis Performed At Patho logist Time Signature WBC, Wet Prep Many [facility] Yeast, Wet Many (A) None [facility] Clue Cells, None None [facility] Wet Prep [facility] Trichomonas, None None [facility] Wet prep [facility] Specimen Anatomical Collection Method Collection Time Receive d Time (Source) Location / / Volume Laterality 06/24/2017 11:25 06/24/2017 PM CDT 11:46 PM CDT Narrative [facility] - 2016 11:46 PM CDT Specimen Source: Vagina The above 4 analytes were performed by [facility] [address] [place] [address] [address] Padmini Milligan PA-C EC MICROBIOLOGY - GENERAL OR DERABLES Performing Organization Address [facility] Phon e Number [facility] [address] [place] [phone] HCG, QUAL URINE (06/24/2017 10:25 PM CDT) P athologist Signature hCG, Urine NEG NEG [facility] Specimen Anatomical Collection Method Collection Time Receive d Time (Source) Location / / Volume Laterality 06/24/2017 10:25 06/24/2017 PM CDT 10:41 PM CDT Narrative [facility] - 2016 10:41 PM CDT The above 1 analytes were performed by [facility] [address] [place] [id number] Brian Núñez MD EC LABORATORY Performing Organization Address City/[facility] Phon e Number [facility] [address] [place] [phone] (ABNORMAL) URINALYSIS, COMPLETE EXAM (06/24/2017 10:25 PM CDT) Patholo gist Method Time Signature Urine Specific 1.020 1.005 - [facility] [place] 1.030 [facility] Urine pH 6.5 5.0 - 8.0 [facility] Urine Leukocyte ++ (A) neg [facility] Esterase [facility] Urine Nitrates neg neg [facility] Urine Protein neg neg [facility] Urine Glucose neg neg [facility] Urine Ketones neg neg [facility] Urine norm norm mg/dL [facility] Urobilinogen [facility] Urine Bilirubin neg neg [facility] Urine Blood TR (A) neg [facility] UA Color yellow [facility] Urine Appearance CLOUDY [facility] Specimen Anatomical Collection Method Collection Time Receive d Time (Source) Location / / Volume Laterality 06/24/2017 10:25 06/24/2017 PM CDT 10:46 PM CDT Narrative [facility] - 2016 10:46 PM CDT The above 12 analytes were performed by [facility] [address] [place] [address] Brian Núñez MD EC URINE ORDERABLES Performing Organization Address [facility] Phon e Number [facility] [address] [place] [phone] (ABNORMAL) URINE MICROSCOPIC EXAMINATION (06/24/2017 10:25 PM CDT) [facility] gist Method Time Signature Urine WBC's 20-50 (A) 0 - 5 [facility] Urine RBC's 0-2 0 - 2 [facility] Urine PACKED (A) NEG [facility] Epithelial [facility] Cells [facility] Urine Bacteria MANY (A) NEG [facility] Amorphous OCC [facility] Crystals, Urine [facility] Specimen Anatomical Collection Method Collection Time Receive d Time (Source) Location / / Volume Laterality 06/24/2017 10:25 06/24/2017 PM CDT 10:46 PM CDT Narrative [facility] - 2016 10:46 PM CDT SPECIMEN IS UNACCEPTABLE FOR CULTURE. PRUJEN The above 5 analytes were performed by [facility] [address] [place] [phone] Brian Núñez MD EC URINE ORDERABLES Performing Organization Address City/State/ZIP Code Phon e Number [facility] [address] [place] [phone] documented in this encounter Visit Diagnoses Not on filedocumented in this encounter
--- OUTSIDE RECORDS SUMMARY | 2022-10-14 22:04 | XMS_ITS | Encounter Summary ---
:1995 Author Organization [employer] Address [address] [address] Phone Care Team Providers Name Role Phone Unavailable Primary Care Provider Unavailable Encounter Details Date Type Department Care Team Description 09/06/2019 [place] Conversion [facility] Navdeep Mahmood MD Encounter [facility] [address] [place] [id number] [place] [address] [phone] Social History Tobacco Use Types Packs/Day Years Used Date Smoking Tobacco: Never Assessed Sex Assigned at Date Recorded Not on file Job Start Date Occupation Industry Not on file Not on file Not on file documented as of this encounter Plan of Treatment Not on filedocumented as of this encounter Procedures Procedure Name Priority Date/Time Associated Comments Diagnosis CT ABDOMEN PELVIS WO Routine 09/06/2019 10:09 Res ults for this IV CONTRAST PM CDT procedure are i n the results section. DIFFERENTIAL Routine 09/06/2019 9:41 PM Results f or this AUTOMATED CDT procedure are i n the results section. URINE MICROSCOPIC Routine 09/06/2019 9:41 PM Resu lts for this EXAMINATION CDT procedure are i n the results section. HCG, QUAL URINE Routine 09/06/2019 9:41 PM Result s for this CDT procedure are i n the results section. BASIC METABOLIC PANEL Routine 09/06/2019 9:41 PM Results for this CDT procedure are i n the results section. HEMOGRAM Routine 09/06/2019 9:41 PM Results f or this CDT procedure are i n the results section. documented in this encounter Results CT ABDOMEN PELVIS WO IV CONTRAST (09/06/2019 10:09 PM CDT) Anatomical Region Laterality Modality Abdomen, Pelvis Computed Tomography Specimen Anatomical Collection Method Collection Time Receive d Time (Source) Location / / Volume Laterality 09/06/2019 10:09 09/06/2019 PM CDT 10:09 PM CDT Narrative 09/06/2019 9:48 PM CDT INDICATION: Right flank pain. Nausea. Treated for UT I for 2 days. COMPARISON: None available TECHNIQUE: CT examination of the abdomen and pelvis was performed without contrast enhancement using 3 mm thick axial secti ons from the lung bases through the pubic symphysis. Oral contrast was not a dministered. Please note that all CT scans at this [facility] use dose modulation, iterative reconstruction, and/or weight-based dosi ng when appropriate to reduce radiation dose to as low as reasonably achievable. FINDINGS: There is a moderate amount of fecal mate rial distributed throughout the right colon, consistent with fecal stasis. In the abdomen, the unenhanced liver, sp anisa, pancreas, and adrenals are normal in appearance. There are tiny nonobstructive calculi in both kidneys. There is no sign of hydronephrosis or hydroureter. There is no sign of ureteral calculi. The gallbladder is normal in appearance. The abdominal aorta is normal in caliber with no sign of dilatation. There is no sign of retroperitoneal mass or adenopat hy. The stomach, loops of small bowel, and c olon in the abdomen are normal in appearance. In the pelvis, the appendix is nonvisual ized, but there is no sign of an inflammatory process in the area of the appendix. The loops of small bowel and colon in th e pelvis are normal in appearance. There is a T-shaped intrauterine device in satisfactory position in the superior uterine fundus. The adnexal regions are normal in appearance. The urinary bladder is normal in appeara nce. There is no sign of pelvic or inguinal m ass or adenopathy. There is a 5 millimeter noncalcified sub pleural nodule in the posterior left lung base on axial image 10 series 2. Th is can be followed with Tariq society criteria. The lung bases are otherwise clear. There is a moderate anterior angulation of the distal 2 coccygeal segments consistent with an old, healed coccygeal fracture. The osseous structures are otherwise nor mal in appearance for the patient`s age. IMPRESSION: Moderate amount of fecal material distri buted throughout the right colon, consistent with fecal stasis. CT of the abdomen shows multiple tiny no nobstructive calculi in both kidneys. No sign of hydronephrosis, hydroureter, or ureterolithiasis. CT of the pelvis show satisfactory posit ioning of a T-shaped intrauterine device in the superior uterine fundus. 5 millimeter nonspecific noncalcified pu lmonary nodule in the posterior left lung base. This can be followed with Fle ischner Society criteria. FLEISCHNER SOCIETY GUIDELINES - SOLID NO DULES: SINGLE LOW RISK - nodule less than 6 mm: No routine foll ow-up. - nodule 6-8 mm: CT at 6-12 months, then consider CT at 18-24 months. - nodule greater than 8 mm: Consider CT at 3 months, PET/CT or tissue sampling. SINGLE HIGH RISK - nodule less than 6 mm: Optional CT at 12 months. - nodule 6-8 mm: CT at 6-12 months, then CT at 18-24 months. - nodule greater than 8 mm: Consider CT at 3 months, PET/CT or tissue sampling. MULTIPLE LOW RISK - nodule less than 6 mm: No routine foll ow-up. - nodule 6-8 mm: CT at 3-6 months, then consider CT at 18-24 months. - nodule greater than 8 mm: CT at 3-6 mo nths, then consider CT at 18-24 months. MULTIPLE HIGH RISK - nodule less than 6 mm: Optional CT at 12 months. - nodule 6-8 mm: CT at 3-6 months, then at 18-24 months. - nodule greater than 8 mm: CT at 3-6 mo nths, then at 18-24 months. Please note that all CT scans at this [facility] use dose modulation, iterative reconstruction, and/or weight-based dosi ng when appropriate to reduce radiation dose to as low as reasonably achievable. Dictated by Moe David MD @ Sep 06 201 9 10:12PM Signed by Dr. Moe David @ Sep 06 2019 10:23PM Reported By/ Electronically Signed By: MOE AVILA MD Date: ??09/06/2019 22:23 Procedure Note Gisela Obrien PA-C - 05/17/2021Form atting of this note might be different from the original. INDICATION: Right flank pain. Nausea. Treated for UT I for 2 days. COMPARISON: None available TECHNIQUE: CT examination of the abdomen and pelvis was performed without contrast enhancement using 3 mm thick axial secti ons from the lung bases through the pubic symphysis. Oral contrast was not a dministered. Please note that all CT scans at this [facility] use dose modulation, iterative reconstruction, and/or weight-based dosi ng when appropriate to reduce radiation dose to as low as reasonably achievable. FINDINGS: There is a moderate amount of fecal mate rial distributed throughout the right colon, consistent with fecal stasis. In the abdomen, the unenhanced liver, sp anisa, pancreas, and adrenals are normal in appearance. There are tiny nonobstructive calculi in both kidneys. There is no sign of hydronephrosis or hydroureter. There is no sign of ureteral calculi. The gallbladder is normal in appearance. The abdominal aorta is normal in caliber with no sign of dilatation. There is no sign of retroperitoneal mass or adenopat hy. The stomach, loops of small bowel, and c olon in the abdomen are normal in appearance. In the pelvis, the appendix is nonvisual ized, but there is no sign of an inflammatory process in the area of the appendix. The loops of small bowel and colon in th e pelvis are normal in appearance. There is a T-shaped intrauterine device in satisfactory position in the superior uterine fundus. The adnexal regions are normal in appearance. The urinary bladder is normal in appeara nce. There is no sign of pelvic or inguinal m ass or adenopathy. There is a 5 millimeter noncalcified sub pleural nodule in the posterior left lung base on axial image 10 series 2. Th is can be followed with Tariq society criteria. The lung bases are otherwise clear. There is a moderate anterior angulation of the distal 2 coccygeal segments consistent with an old, healed coccygeal fracture. The osseous structures are otherwise nor mal in appearance for the patient`s age. IMPRESSION: Moderate amount of fecal material distri buted throughout the right colon, consistent with fecal stasis. CT of the abdomen shows multiple tiny no nobstructive calculi in both kidneys. No sign of hydronephrosis, hydroureter, or ureterolithiasis. CT of the pelvis show satisfactory posit ioning of a T-shaped intrauterine device in the superior uterine fundus. 5 millimeter nonspecific noncalcified pu lmonary nodule in the posterior left lung base. This can be followed with Fle ischner Society criteria. FLEISCHNER SOCIETY GUIDELINES - SOLID NO DULES: SINGLE LOW RISK - nodule less than 6 mm: No routine foll ow-up. - nodule 6-8 mm: CT at 6-12 months, then consider CT at 18-24 months. - nodule greater than 8 mm: Consider CT at 3 months, PET/CT or tissue sampling. SINGLE HIGH RISK - nodule less than 6 mm: Optional CT at 12 months. - nodule 6-8 mm: CT at 6-12 months, then CT at 18-24 months. - nodule greater than 8 mm: Consider CT at 3 months, PET/CT or tissue sampling. MULTIPLE LOW RISK - nodule less than 6 mm: No routine foll ow-up. - nodule 6-8 mm: CT at 3-6 months, then consider CT at 18-24 months. - nodule greater than 8 mm: CT at 3-6 mo nths, then consider CT at 18-24 months. MULTIPLE HIGH RISK - nodule less than 6 mm: Optional CT at 12 months. - nodule 6-8 mm: CT at 3-6 months, then at 18-24 months. - nodule greater than 8 mm: CT at 3-6 mo nths, then at 18-24 months. Please note that all CT scans at this [facility] use dose modulation, iterative reconstruction, and/or weight-based dosi ng when appropriate to reduce radiation dose to as low as reasonably achievable. Dictated by Moe David MD @ Sep 06 201 9 10:12PM Signed by Dr. Moe David @ Sep 06 2019 10:23PM Reported By/ Electronically Signed By: Jackson BHAKTA MD, MOE Pennington Date: 09/06/2019 22:23 Gisela Obrien PA-C EC CT ORDERABLES BASIC METABOLIC PANEL (09/06/2019 9:41 PM CDT) P athologist Signature Sodium 140 136 - 145 [facility] mmol/L [facility] Potassium 4.0 3.5 - 5.1 [facility] mmol/L [facility] Chloride 105 98 - 107 [facility] mmol/L [facility] Bicarbonate 26 21 - 32 [facility] (HCO3), Venous mmol/L [facility] Calcium 9.0 8.5 - 10.1 [facility] mg/dL [facility] Glucose 83 74 - 100 [facility] mg/dL [facility] Blood Urea 18 7 - 18 [facility] nitrogen mg/dL [facility] Creatinine 0.60 0.51 - [facility] 0.95 mg/dL [facility] Glomerular >60 60 - 150 [facility] Filtration Rate mL/min/1.[address] 2 LABORATORY Specimen Anatomical Collection Method Collection Time Receive d Time (Source) Location / / Volume Laterality 09/06/2019 9:41 PM 9 CDT 10:04 PM CDT Narrative [facility] - 2018 10:04 PM CDT Individuals with an estimsted GFR greater than (>) 60 l/min/1.73m 2 are classified as having a lower risk fo r kidney disease. Multiply X 1.159 if . ?? Valid in patients 18 years and older. ?? The above 9 analytes were performed by [facility] [address] [place] [address] [id number] Gisela Obrien PA-C EC CHEMISTRY ORDERABLES Performing Organization Address [facility] Phon e Number [facility] [address] [place] [address] [phone] HCG, QUAL URINE (09/06/2019 9:41 PM CDT) P athologist Signature hCG, Urine NEG NEG [facility] Qualitative [facility] Specimen Anatomical Collection Method Collection Time Receive d Time (Source) Location / / Volume Laterality 09/06/2019 9:41 PM 9 9:54 CDT PM CDT Narrative [facility] - 2018 9:54 PM CDT The above 1 analytes were performed by [facility] [address] [place] [address] [phone] Gisela Obrien PA-C EC LABORATORY Performing Organization Address [facility] Phon e Number [facility] [address] [place] [phone] (ABNORMAL) URINE MICROSCOPIC EXAMINATION (09/06/2019 9:41 PM CDT) Analysis Performed At Patho logist Time Signature Urine WBC's 0-5 0 - 5 /hpf [facility] Urine RBC's 0-2 0 - 2 /hpf [facility] Urine OCC (A) NEG /hpf [facility] Epithelial [facility] Urine Bacteria OCC (A) NEG /hpf [facility] Specimen Anatomical Collection Method Collection Time Receive d Time (Source) Location / / Volume Laterality 09/06/2019 9:41 PM 9 CDT 10:09 PM CDT Narrative [facility] - 2018 10:09 PM CDT Moderate or greater Epithelial cells will not reflex for culture due to probable collection contamination. Recollection required for culture. The above 4 analytes were performed by [facility] [address] [place] [address] [phone] Gisela Obrien PA-C EC URINE ORDERABLES Performing Organization Address City/State/ZIP Code Phon e Number [facility] [address] [place] [phone] HEMOGRAM (09/06/2019 9:41 PM CDT) P athologist Signature WBC 9.1 4.0 - 11.0 [facility] x10 3/uL [facility] RBC 5.07 3.80 - 5.20 [facility] x10 6/uL [facility] HGB 15.3 12.0 - 16.0 [facility] g/dL [facility] HCT 44.4 35.0 - 47.0 [facility] % [facility] MCV 88 80 - 98 fL [facility] MCH 30 27 - 34 pg [facility] MCHC 35 32 - 36 [facility] g/dL [facility] PLT 330 150 - 420 [facility] x10 3/uL [facility] RDW-SD 37.5 36.5 - 46.3 [facility] fL [facility] RDW-CV 11.6 11.6 - 14.4 [facility] % [facility] Specimen Anatomical Collection Method Collection Time Receive d Time (Source) Location / / Volume Laterality 09/06/2019 9:41 PM 9 CDT 10:02 PM CDT Narrative [facility] - 2018 10:02 PM CDT The above 10 analytes were performed by [facility] [address] [place] [address] [id number] Gisela Obrien PA-C EC HEMATOLOGY ORDERABLES Performing Organization Address [facility] Phon e Number [facility] [address] [place] [phone] DIFFERENTIAL AUTOMATED (09/06/2019 9:41 PM CDT) Analysis Performed At Patho logist Time Signature Neutrophils % 56.6 45.0 - [facility] 75.0 % [facility] Lymphocytes % 35.1 18.0 - [facility] 40.0 % [facility] Monocytes % 5.3 3.0 - 13.0 [facility] % [facility] Eosinophils % 2.4 0.0 - 5.0 [facility] % [facility] Basophils % 0.5 0.0 - 1.0 [facility] % [facility] Neutrophils 5.15 2.10 - [facility] Absolute 7.50 x10 [facility]L [facility] Lymphocytes 3.20 0.76 - [facility] Absolute 4.00 x10 [facility]L [facility] Monocytes 0.48 0.00 - [facility] Absolute 0.90 x10 [facility]L [facility] Eosinophils 0.22 0.04 - [facility] Absolute 0.54 x10 [facility] Basophils 0.05 0.00 - [facility] Absolute 0.20 x10 [facility] Immature 0.01 0.00 - [facility] Granulocytes 0.10 x10 [facility] 3/uL [facility] Granulocytes % 0.1 0.0 - 1.0 [facility] % [facility] Specimen Anatomical Collection Method Collection Time Receive d Time (Source) Location / / Volume Laterality 09/06/2019 9:41 PM 9 CDT 10:02 PM CDT Narrative [facility] - 2018 10:02 PM CDT The above 12 analytes were performed by [facility] [address] [place] [phone] Gisela Obrien PA-C EC LABORATORY Performing Organization Address City/[facility] Phon e Number [facility] [address] [place] [phone] documented in this encounter Visit Diagnoses Not on filedocumented in this encounter
--- OUTSIDE RECORDS SUMMARY | 2022-10-14 22:04 | XMS_ITS | Encounter Summary ---
:1995 Author Organization [employer] Address [address] [address] Phone Care Team Providers Name Role Phone Unavailable Primary Care Provider Unavailable Encounter Details Date Type Department Care Team Description 02/23/2020 [facility] [place] [facility] EM[facility]Y MD DEPARTMENT [address] [place] [address] [place] [address] Social History Tobacco Use Types Packs/Day Years Used Date Smoking Tobacco: Never Assessed Sex Assigned at Date Recorded Not on file Job Start Date Occupation Industry Not on file Not on file Not on file documented as of this encounter Plan of Treatment Not on filedocumented as of this encounter Procedures Procedure Name Priority Date/Time Associated Comments Diagnosis US PELVIS WITH Routine 02/23/2020 3:31 PM Results for this ENDOVAG NON OB CDT procedure are in the results section. DIFFERENTIAL Routine 02/23/2020 2:47 PM Results f or this AUTOMATED CDT procedure are i n the results section. C REACTIVE PROTEIN Routine 02/23/2020 2:47 PM Res ults for this CDT procedure are i n the results section. BASIC METABOLIC PANEL Routine 02/23/2020 2:47 PM Results for this CDT procedure are i n the results section. HEMOGRAM Routine 02/23/2020 2:47 PM Results f or this CDT procedure are i n the results section. HCG, SERUM Routine 02/23/2020 2:47 PM Results f or this QUALITATIVE CDT procedure are i n the results section. documented in this encounter Results US PELVIS WITH ENDOVAG NON OB (02/23/2020 3:31 PM CDT) Anatomical Region Laterality Modality Pelvis, Hip Ultrasound Specimen Anatomical Collection Method Collection Time Receive d Time (Source) Location / / Volume Laterality 02/23/2020 3:31 PM 0 3:31 CDT PM CDT Narrative 02/23/2020 2:27 PM CDT PROCEDURE: ??PELVIC ??w/TRANSVAGINAL-NONOB HISTORY: ??lower abd pain cramping TECHNIQUE: ??Both transabdominal and end ovaginal scanning were utilized for this exam. ??Endovaginal scanning was utilize d to better assess the endometrial stripe and ovaries. ??Endovaginal spectral colo r and doppler sonography of the ovarian arterial and venous blood flow was obtai arden. COMPARISON: None FINDINGS: Transabdominal scanning reveal s the uterus to measure 6.7 x 4.8 x 3.3 cm. No uterine mass is evident. Endovaginal scanning reveals endometrial stripe to measure 2 mm. No endometrial mass or polyp is seen. An IUD is best visualized with endovagin al scanning and is low in the endometrial canal. A small amount of flu id is present in the endocervical canal. Endovaginal scanning reveals the right o vary to measure 3.1 x 2.3 x 1.8 cm and the left ovary to measure 2.8 x 2.0 x 1. 8 cm. The ovaries are normal in appearance with small peripheral follicl es present bilaterally. Endovaginal spectral color and Doppler s onography reveal normal bilateral ovarian arterial and venous blood flow. No free fluid is present in the pelvis. IMPRESSION: 1. An IUD is positioned low in the uteri ne endometrial canal. 2. Small amount of fluid in the lower en dometrial/cervical canal. 3. Other finds are unremarkable as noted above. Reported By/ Electronically Signed By: Callum SOUTH MD, FERNANDO Peace Date: ??02/23/2020 15:39 Procedure Note Sergio Vail PA-C - 05/17/2021Form atting of this note might be different from the original. PROCEDURE: PELVIC w/TRANSVAGINAL-NONOB HISTORY: lower abd pain cramping TECHNIQUE: Both transabdominal and endov aginal scanning were utilized for this exam. Endovaginal scanning was utilized to better assess the endometrial stripe and ovaries. Endovaginal spectral color and doppler sonography of the ovarian arterial and venous blood flow was obtai arden. COMPARISON: None FINDINGS: Transabdominal scanning reveal s the uterus to measure 6.7 x 4.8 x 3.3 cm. No uterine mass is evident. Endovaginal scanning reveals endometrial stripe to measure 2 mm. No endometrial mass or polyp is seen. An IUD is best visualized with endovagin al scanning and is low in the endometrial canal. A small amount of flu id is present in the endocervical canal. Endovaginal scanning reveals the right o vary to measure 3.1 x 2.3 x 1.8 cm and the left ovary to measure 2.8 x 2.0 x 1. 8 cm. The ovaries are normal in appearance with small peripheral follicl es present bilaterally. Endovaginal spectral color and Doppler s onography reveal normal bilateral ovarian arterial and venous blood flow. No free fluid is present in the pelvis. IMPRESSION: 1. An IUD is positioned low in the uteri ne endometrial canal. 2. Small amount of fluid in the lower en dometrial/cervical canal. 3. Other finds are unremarkable as noted above. Reported By/ Electronically Signed By: Callum SOUTH MD, FERNANDO Peace Date: 02/23/2020 15:39 Sergio Vail PA-C US ORDERABLES DIFFERENTIAL AUTOMATED (02/23/2020 2:47 PM CDT) Analysis Performed At [facility] Time Signature Neutrophils % 64.0 45.0 - [place] 75.0 % [facility] Lymphocytes % 29.2 18.0 - [place] 40.0 % [facility] Monocytes % 4.8 3.0 - 13.0 [place] % [facility] Eosinophils % 1.2 0.0 - 5.0 [place] % [facility] Basophils % 0.6 0.0 - 1.0 [place] % [facility] Neutrophils 6.23 2.10 - [place] Absolute [address] LABORATORY Lymphocytes 2.84 0.76 - [place] Absolute 4.[address] LABORATORY Monocytes 0.47 0.00 - [place] Absolute 0.[address] LABORATORY Eosinophils 0.12 0.04 - [place] Absolute 0.[address] LABORATORY Basophils 0.06 0.00 - [place] Absolute 0.[address] LABORATORY Nucleated RBC 0.0 0.0 - 0.0 [place] /100 WBC'S [facility] Nucleated RBCs 0.00 0.00 - [place] Absolute 0.[address] LABORATORY Immature 0.02 0.00 - [place] Granulocytes 0.[address] LABORATORY Granulocytes % 0.2 0.0 - 1.0 [place] % [facility] Specimen Anatomical Collection Method Collection Time Receive d Time (Source) Location / / Volume Laterality 02/23/2020 2:47 PM 0 2:52 CDT PM CDT Narrative [facility] - 02/23/2020 2:52 PM CDT The above 14 analytes were performed by [facility] Laboratory [address] [place] [address] Sergio Vail PA-C EC LABORATORY Performing Organization Address City/[facility] e [address] [address] LABORATORY HCG, SERUM QUALITATIVE (02/23/2020 2:47 PM CDT) athologist Signature hCG, Serum NEG NEG [place] Qualitative [facility] Specimen Anatomical Collection Method Collection Time Receive d Time (Source) Location / / Volume Laterality 02/23/2020 2:47 PM 0 3:29 CDT PM CDT Narrative [facility] - 02/23/2020 3:29 PM CDT The above 1 analytes were performed by [facility] Laboratory [address] [place] [address] Sergio LEE-C EC CHEMISTRY ORDERABLES Performing Organization Address [facility] Phon e [address] [address] LABORATORY (ABNORMAL) HEMOGRAM (02/23/2020 2:47 PM CDT) athologist Signature WBC 9.7 4.0 - 11.0 [place] x10 3/uL [facility] RBC 5.66 (H) 3.80 - 5.20 [place] x10 6/uL [facility] HGB 16.7 (H) 12.0 - 16.0 [place] g/dL [facility] HCT 49.5 (H) 35.0 - 47.0 [facility] MCV 88 80 - [address] [facility] MCH 30 27 - [address] [facility] MCHC 34 32 - 36 [place] g/dL [facility] PLT 314 150 - 420 [place] x10 3/uL [facility] RDW-SD 39.9 36.5 - 46.3 [facility] LABORATORY RDW-CV 12.6 11.6 - 14.4 [facility] Specimen Anatomical Collection Method Collection Time Receive d Time (Source) Location / / Volume Laterality 02/23/2020 2:47 PM 0 2:52 CDT PM CDT Narrative [facility] - 02/23/2020 2:52 PM CDT The above 10 analytes were performed by [facility] Laboratory [address] [place] [address] Sergio Vail PA-C EC HEMATOLOGY ORDERABLES Performing Organization Address City/State/ZIP Code Phon e Number [facility] 500 [place], [place] [address] LABORATORY BASIC METABOLIC PANEL (02/23/2020 2:47 PM CDT) athologist Signature Sodium 140 136 - 145 [place] mmol/L [facility] Potassium 4.8 3.5 - 5.1 [place] mmol/L [facility] Chloride 104 98 - 107 [place] mmol/L [facility] Bicarbonate 30 21 - 32 [place] (HCO3), Venous mmol/L [facility] Calcium 9.3 8.5 - 10.1 [place] mg/dL [facility] Glucose 94 74 - 100 [place] mg/dL [facility] Blood Urea 15 7 - 18 [place] nitrogen mg/dL [facility] Creatinine 0.76 0.51 - [place] 0.95 mg/dL [facility] Glomerular >60 60 - 150 [place] Filtration Rate mL/min/1.[address] LABORATORY Specimen Anatomical Collection Method Collection Time Receive d Time (Source) Location / / Volume Laterality 02/23/2020 2:47 PM 0 3:10 CDT PM CDT Narrative [facility] - 02/23/2020 3:10 PM CDT Individuals with an estimsted GFR greater than (>) 60 l/min/1.73m 2 are classified as having a lower risk fo r kidney disease. Multiply X 1.159 if . ?? Valid in patients 18 years and older. ?? The above 9 analytes were performed by [facility] Laboratory [address] [place] [address] Sergio Vail PA-C EC CHEMISTRY ORDERABLES Performing Organization Address City/[facility] Phon e Number [address] [address] LABORATORY C REACTIVE PROTEIN (02/23/2020 2:47 PM CDT) P athologist Signature C-Reactive <0.05 0.00 - [place] Protein 0.33 mg/dL [facility] Specimen Anatomical Collection Method Collection Time Receive d Time (Source) Location / / Volume Laterality 02/23/2020 2:47 PM 0 3:10 CDT PM CDT Narrative [facility] - 02/23/2020 3:10 PM CDT The above 1 analytes were performed by [facility] Laboratory [address] [place] [address] Sergio Vail PA-C EC CHEMISTRY ORDERABLES Performing Organization Address City/[facility] Phon e Number [address] [address] LABORATORY documented in this encounter Visit Diagnoses Not on filedocumented in this encounter
--- OUTSIDE RECORDS SUMMARY | 2022-10-14 22:04 | XMS_ITS | Encounter Summary ---
:1997 Author Organization [employer] Address [address] [address] Phone Care Team Providers Name Role Phone Unavailable Primary Care Provider Unavailable Encounter Details Date Type Department Care Team Description 02/23/2019 RV [place] [facility]-C DEPARTMENT [address] [address] [place] [address] [phone] Social History Tobacco Use Types Packs/Day Years Used Date Smoking Tobacco: Never Assessed Sex Assigned at Date Recorded Not on file Job Start Date Occupation Industry Not on file Not on file Not on file documented as of this encounter Plan of Treatment Not on filedocumented as of this encounter Procedures Procedure Name Priority Date/Time Associated Diagnosis Comme nts STREP ANTIGEN Routine 02/23/2019 3:40 PM Results for this SCREEN GRP A CDT procedure are i n the results section. documented in this encounter Results STREP ANTIGEN SCREEN GRP A (02/23/2019 3:40 PM CDT) Analysis Performed At Patho logist Time Signature Group A Strep Negative Negative [facility] Specimen Anatomical Collection Method Collection Time Receive d Time (Source) Location / / Volume Laterality 02/23/2019 3:40 PM 9 3:53 CDT PM CDT Narrative [facility] - 2018 3:53 PM CDT Specimen Source: Throat Reflex Strep A Confirmatory Testing is n o longer performed on patients >20yrs old per ICSI Recommended Guidelin radha The above 1 analytes were performed by [facility] [address] [place] [address] Meme [place] MICROBIOLOGY - GENERAL OR DERABLES Performing Organization Address City/State/ZIP Code Phon e Number [address] [phone] documented in this encounter Visit Diagnoses Not on filedocumented in this encounter
--- OUTSIDE RECORDS SUMMARY | 2022-10-14 22:04 | XMS_ITS | Encounter Summary ---
:1997 Author Organization [employer] Address [address] [address] Phone Care Team Providers Name Role Phone Unavailable Primary Care Provider Unavailable Encounter Details Date Type Department Care Team Description 11/09/2017 RV [place] Conversion [place] Ruthann Diaz, Encounter HOSPITAL EMERGENCY PA-C DEPARTMENT [address] [address] [place] [address] [phone] Social History Tobacco Use Types Packs/Day Years Used Date Smoking Tobacco: Never Assessed Sex Assigned at Date Recorded Not on file Job Start Date Occupation Industry Not on file Not on file Not on file documented as of this encounter Plan of Treatment Not on filedocumented as of this encounter Procedures Procedure Name Priority Date/Time Associated Comments Diagnosis CHLAMYDIA/GONORRHOEAE Routine 11/09/2017 10:08 Re sults for this AMPLIFIED RNA PM [facility] procedure are in the results section. TRICHOMONAS AND YEAST Routine 11/09/2017 10:08 Re sults for this PM [facility] procedure are i n the results section. documented in this encounter Results TRICHOMONAS AND YEAST (11/09/2017 10:08 PM DIAMOND [facility]ANDER) Analysis Performed At Patho logist Time Signature WBC, Wet Prep Moderate [facility] Yeast, Wet None None [facility] Clue Cells, None None [facility] Trichomonas, None None [place] [facility] Wet prep [facility] Specimen Anatomical Collection Method Collection Time Receive d Time (Source) Location / / Volume Laterality 11/09/2017 10:08 11/09/2017 PM [facility] 10:26 PM [facility] Narrative [facility] - 2017 10:26 PM [facility] Specimen Source: Vagina The above 4 analytes were performed by [facility] [address] [place] [address], [place] [address] Ruthann Sims PA-C EC MICROBIOLOGY - GENERAL OR DERABLES Performing Organization Address City/[facility]/ZIP Code Phon e Number [facility] [address] [place] [phone] CHLAMYDIA/GONORRHOEAE AMPLIFIED RNA (11/09/2017 10:08 PM DIAM[facility] SANDER) [facility] Method Time Signature Chlamydia Negative Negative [facility] trachomatis [facility] Neisseria Negative Negative [facility] gonorrhoeae [facility] amplified RNA Specimen Anatomical Collection Method Collection Time Receive d Time (Source) Location / / Volume Laterality 11/09/2017 10:08 11/12/2017 PM [facility]AND[facility] 10:10 AM DIAM[facility] S[facility]ER Narrative [facility] - 11/12/2017 10:10 AM DIAMOND SANDER This test was developed and its performance characteristics determined by [facility]. It has not been c leared or approved by the Food and Drug Administration. This test was developed and its performa nce characteristics determined by [facility]. It has not been c leared or approved by the Food and Drug Administration. Performed at: ??[facility] [id number] ??[id number] Social Security Assessor: Jaron Wilson MD, Phone: ? ?[phone] The above 2 analytes were performed by [facility] [address] [place] [address] [address],ACCT [id number],[place] [address] Ruthann Sims PA-C EC LAB SEND OUT ORDERABLES Performing Organization Address City/State/ZIP Code Phon e Number [facility] documented in this encounter Visit Diagnoses Not on filedocumented in this encounter
--- OUTSIDE RECORDS SUMMARY | 2022-10-14 22:04 | XMS_ITS | Encounter Summary ---
:1997 Author Organization [employer] Address [address] [address] Phone Care Team Providers Name Role Phone Unavailable Primary Care Provider Unavailable Encounter Details Date Type Department Care Team Description 07/07/2019 RV [place] Conversion [facility] Jocy Augustine MD Encounter HOSPITAL SAME DAY [facility] SURGERY [address] [place] [address] [place] [address] [phone] Social History Tobacco Use Types Packs/Day Years Used Date Smoking Tobacco: Never Assessed Sex Assigned at Date Recorded Not on file Job Start Date Occupation Industry Not on file Not on file Not on file documented as of this encounter Plan of Treatment Not on filedocumented as of this encounter Procedures Procedure Name Priority Date/Time Associated Comments Diagnosis HCG, SERUM Routine 07/07/2019 10:43 Results for this QUALITATIVE AM CDT procedure are i n the results section. PATHOLOGY SPEC Routine 07/07/2019 12:00 Results f or this AM CDT procedure are i n the results section. documented in this encounter Results HCG, SERUM QUALITATIVE (07/07/2019 10:43 AM CDT) P athologist Signature hCG, Serum NEG NEG [facility] LABORATORY Specimen Anatomical Collection Method Collection Time Receive d Time (Source) Location / / Volume Laterality 07/07/2019 10:43 07/07/2019 AM CDT 11:19 AM CDT Narrative [facility] - 07/07/2019 11:19 AM CDT The above 1 analytes were performed by [facility] Laboratory [address] [place] [address] Sundeep Severino MD EC CHEMISTRY ORDERABLES Performing Organization Address City/State/ZIP Code Phon e Number [address] [address] LABORATORY PATHOLOGY SPEC (07/07/2019 12:00 AM CDT) P athologist Signature Case Report Report [facility] Specimen (Source) Anatomical Collection Method Collection Time Re ceived Time Location / / Volume Laterality 07/07/2019 07/12/2019 11:2 2 AM CDT Narrative [facility] - 2018 11:22 AM CDT CASE: [id number] PATIENT: CHYNA JAUREGUI COLLECTION DATE: 07-07-2019 ORDERING PHYSICIAN: JOCY AUGUSTINE MD CLINICAL HX: ? Dysmenorrhea SPECIMEN: ?A.) Right peritubal cyst; B.) Peritoneal biopsy PATHOLOGIC DIAGNOSIS: A. ??Right peritubal cyst: - Benign peritubal cyst. B. ??Peritoneal biopsy: - Endosalpingosis, with focal calcificat ions ? Ivana Carey M.D. GROSS: A. ?? Received in formalin labeled shelby tubal cyst (right) is a 1.2 x 1 x 1 cm cystic structure, which is inked paloma k. ??The cyst contains clear watery fluid and has translucent galan-pink wall s. ??No excrescences are identified and the specimen is entirely submitted i n A1. B. ?? Received in formalin labeled shelby toneal biopsy is a 0.3 x 0.2 x 0.2 cm galan-pink to brown tissue. ??The spec imen is filtered and entirely submitted in B1. ??([facility]) MICROSCOPIC: A Hardeep Carey M.D. Pathologist Elect ronically signed 07/12/2019 11:22AM [facility] Pathology [address] [place], [address] CLIA ID: [id number] Jocy Augustine MD EC PATHOLOGY ORDERABLES Performing Organization Address City/State/ZIP Code Phon e Number [facility] documented in this encounter Visit Diagnoses Not on filedocumented in this encounter
--- OUTSIDE RECORDS SUMMARY | 2022-10-14 22:04 | XMS_ITS | Encounter Summary ---
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 documented as of this encounter Plan of Treatment Not on filedocumented as of this encounter Visit Diagnoses Not on filedocumented in this encounter Care Teams [employer] Relationship Specialty Start Date End Date Gregg Augustine MD PCP - General quarry supervisor 11/02/[address] [address] documented as of this encounter
--- OUTSIDE RECORDS SUMMARY | 2022-10-14 22:04 | XMS_ITS | Encounter Summary ---
:1995 Author Organization [facility] Address [address] [place] [address] Care Team Providers Name Role Phone Unassigned, Provider Primary Care Provider Unavailable Reason for Visit Reason Comments Fever Encounter Details Date Type Department Care Team Description 12/20/2019 Emergency HH Emergency Dani Carrion, Viral illness (Primary [address] DO Dx) [place], [place] [id number] [phone] [facility] [phone] [place], [place] [phone] (Wo rk) Social History Tobacco Use Types Packs/Day Years Used Date Smoking Tobacco: Never Alcohol Use Standard Drinks/Week Comments Yes 0 (1 standard drink = 0.6 oz pure alcoho l) occasional Sex Assigned at Date Recorded Not on file documented as of this encounter Last Filed Vital Signs Vital Sign Reading Time Taken Comments Blood Pressure 100/68 12/20/2019 9:39 PM [employer] Pulse 74 12/20/2019 9:37 PM [employer] Temperature 38.8 ??C (101.9 ??F) 12/20/2019 9:37 PM [employer] Respiratory Rate 16 12/20/2019 9:37 PM [employer] Oxygen Saturation 96% 12/20/2019 9:37 PM [employer] Inhaled Oxygen Concentration - - Weight 56.7 kg (125 lb) 12/20/2019 8:52 PM [employer] Height - - Body Mass Index - - documented in this encounter Discharge Instructions Discharge InstructionsJl Lemus MD - 12/20/2019 9:27 PM CST Please take ibuprofen and your cold medicine. Please make sure cold medicine does not also have ibuprofen. Please return for worsening symptoms as discussed. Please take the Zofran as needed. [employer]TY CLAIMS SUPERVISOR AttachmentsThe following attachments cannot be sent through Care Everywhere. Viral Infections (Estonian)documented in this encounter Medications at Time of Discharge Medication Sig Dispensed Refills Start Date End Date SUMAtriptan (IMITREX) Take 100 mg by mouth as 0 100 MG tablet needed for Migraine. SUMAtriptan (IMITREX) Inject 6 mg 0 6 MG/0.5ML injection subcutaneously once as needed. documented as of this encounter ED Notes Anisha Garcia RN - 12/20/2019 9:43 PM CST .[facility] Emergency Department Nursing Discharge Note Vital Signs: BP: 100/68 Temp: (!) 101.9 ??F (38.8 ??C)Temp src: Oral Pulse: 74 Resp: 16 SpO2: 96 % Patient discharged: to Home. Patient accompanied by: Friend. Transported by: Walked Valuables were taken home by patient: yes Work/School Slip given: Yes Discharge instructions given and explained to patient and/or parent: Yes Specific treatments/teaching done regarding treatment/care today: reviewed s/sx to return to ED or follow up in clinic Patient/Parent verbalized understanding: yes Discharge prescriptions given to patient and or parents: Yes: Medications Prescribed this Visit None Patient level of pain on discharge: verbal, 5/10 Patients condition on discharge related to chief complaint and treatment in ED: Unchanged ---End of Report--- ALTY CLAIMS SUPERVISOR Dani Carrion DO - 12/20/2019 9:29 PM CST [facility] Emergency Department Attending Supervision Note I performed the cherry elements of history and exam, and agree with resident's findings and plan of care as discussed with Jl Lemus. I have reviewed and agreed with the PMH, FH, SOC, ROS. Please see today's note by resident physician. Assessment: HEENT: No signs of trauma Chest lung sounds clear to auscultation Heart sounds are regular rate and rhythm Abdomen soft and nontender Extremity exam no trauma Neurologically awake and alert and oriented Plan: Discharged home Author: Dani Carrion DO ALTY CLAIMS SUPERVISOR Jl Lemus MD - 12/20/2019 8:59 PM CST [facility] Emergency Medicine Visit Note Chief Complaint: Fever HPI Chyna is a 24 yo Female that presents with fever, cough, body aches. Symptoms started 2.5 days agowith onset of minor sore throat and then yesterday progressed with fever, cough with minor sputum production, and vomiting that began at 5:30 pm yesterday. She has not tolerated PO food intake, last meal was at 10:30 am which she vomited. Is tolerating water and gatorade. She also complains of chills and hot flashes with chest tightness with deep breathing and coughing. Denies hematemesis, urinary symptoms, bowel changes, Nausea. Denies sick contacts, no influenza vaccine this season. Treatment includes tylenol and ibuprofen. IUD for contraception otherwise no chronic medications. In addition to the above, I have personally reviewed any medications, allergies, problem list, medical history, surgical history and social history in the health record as of this visit. Review of Systems A complete review of systems was performed and is otherwise negative. Triage Vitals [12/20/192051] Temp (!) 101.2 ??F (38.4 ??C) Temp src Temporal Art Pulse (!) 110 Resp 20 BP 117/83 SpO2 96 % Physical Exam Constitutional: Appearance: Normal appearance. HENT: Head: Normocephalic and atraumatic. Right Ear: Tympanic membrane and ear canal normal. Left Ear: Tympanic membrane and ear canal normal. Nose: Nose normal. Mouth/Throat: Mouth: Mucous membranes are moist. Pharynx: Oropharynx is clear. Posterior oropharyngeal erythema present. Eyes: Extraocular Movements: Extraocular movements intact. Neck: Musculoskeletal: Muscular tenderness present. Cardiovascular: Rate and Rhythm: Regular rhythm. Tachycardia present. Pulses: Normal pulses. Heart sounds: Normal heart sounds. Pulmonary: Effort: Pulmonary effort is normal. Breath sounds: Normal breath sounds. Abdominal: Palpations: Abdomen is soft. Tenderness: There is no abdominal tenderness. Skin: General: Skin is warm and dry. Capillary Refill: Capillary refill takes less than 2 seconds. Neurological: Mental Status: She is alert and oriented to person, place, and time. Psychiatric: Mood and Affect: Mood normal. Behavior: Behavior normal. MDM: Differential diagnosis includes influenza or influenza like illness or strep pharyngitis, most likely influenza like illness, given pharynx exam is reassuring. Pneumonia, PE and pneumothorax less likely secondary to history and exam with normal breath sounds and absences of tachypnea or hypoxia. Plan: symptomatic management with toradol IM, will provide prescription for zofran, continue with tylenol and ibuprofen scheduled. Defer influenza swab secondary to timing of symptoms > 48 hours, would not treat even if positive testing. I have verified the history, personally performed the physical exam and medical decision making, andagree with the student's documentation. Jl Lemus MD ED Course as of Dec 20 2128 Wed Dec 20, [id number] Patient reassessed, she would like to go home at this time, I do not believe that any indication to check for influenza or strep throat as I would not treat her for influenza 3 days or symptoms and her symptomatology does not fit strep throat. Patient is in agreement this plan to go home with ibuprofen, Tylenol, will refill Zofran. Given instructions for follow-up, work note, return precautions. [ZF] ED Course User Index [ZF] Jl Lemus MD Clinical Impressions as of Dec 20 2128 Viral illness AL[employer] CLAIMS SUPERVISOR documented in this encounter Plan of Treatment Not on filedocumented as of this encounter Visit Diagnoses Diagnosis Viral illness - Primary Unspecified viral infection, in conditio ns classified elsewhere and of unspecified site Triage Assessment Note - Anisha Garcia RN - 12/20/2019 8:54 PM [employer] CLAIMS SUPERVISOR . [facility] Emergency Department Triage Note Chief Complaint: fever, body aches, vomiting. Time of Onset: wednesday. Pre-Hospital Treatment: acetaminophen 1800, ibuprofen 1400 Assessment/History: Pt c/o of sore throat, coughing, and increasing body aches since Wednesday, yesterday started vomiting, no diarrhea, has had persistent fevers despite alternating APAP and ibuprofen. No flu vaccine this year. Treatments/Monitoring Initiated: vitals, ROSA student in room, patient masked. Arrived to ER by: ambulatory, [facility] Report Time and Agency: N/A ALTY CLAIMS SUPERVISOR documented in this encounter Administered Medications Inactive Administered Medications - up to 3 most recent administrations Medication Order MAR Action Action Date Dose Rate Site ketorolac (TORADOL) injection 15 mg Given 12/20/2019 9:11 PM [employer]OR 15 mg 15 mg, Intravenous, ONCE, On Wed12/20/19 at 2114, For 1 dose ondansetron (ZOFRAN-ODT) disintegrating tablet Given 0 12/20/2019 9:10 PM [employer]S SUPERVISOR 4 mg 4 mg 4 mg, Oral, ONCE, On Wed12/20/19 at 2114, For 1 dose, Do not swallow tablet whole. Allow to dissolve on the tongue without chewing. documented in this encounter Active and Recently Administered Medications Times are shown in CASUAL[employer] CLAIMS SUPERVISOR. Scheduled Medication Order 12/18/2019 12/19/2019 12/20/2019 ketorolac (TORADOL) injection 15 mg (COMPLETED) 2110 (Given - Provider: Anisha Garcia RN) 15 mg, Intravenous, ONCE, 12/20/19 at 2114, For 1 dose ondansetron (ZOFRAN-ODT) disintegrating tablet 4 mg (COMPLETED) 2109 (Given - Provider: Anisha Garcia, MILLY) 4 mg, Oral, ONCE, 12/20/19 at 2114, F or 1 dose, Do not swallow tablet whole. Allow to dissolve on the tongue without chewing. documented in this encounter Care Teams Special Events Director Relationship Specialty Start Date End Date Unassigned, Provider PCP - General Unknown Physician 12/20/19 03/03/[address] [place] [id number] documented as of this encounter
--- OUTSIDE RECORDS SUMMARY | 2022-10-14 22:04 | XMS_ITS | Encounter Summary ---
:1995 Author Organization [employer] Address [address] [address] Phone Care Team Providers Name Role Phone Unavailable Primary Care Provider Unavailable Encounter Details Date Type Department Care Team Description 11/08/2016 RV Mona Conversion [facility] Merlene Rodriguez [facility] [address] [place] [address] [place] [address] [phone] Social History Tobacco Use Types Packs/Day Years Used Date Smoking Tobacco: Never Assessed Sex Assigned at Date Recorded Not on file Job Start Date Occupation Industry Not on file Not on file Not on file documented as of this encounter Plan of Treatment Not on filedocumented as of this encounter Procedures Procedure Name Priority Date/Time Associated Comments Diagnosis DIFFERENTIAL AUTOMATED Routine 11/08/2016 3:16 PM Results for this INDUSTRIAL TECHNICIAN procedure are i n the results section. COMPREHENSIVE Routine 11/08/2016 3:16 PM Results for this METABOLIC PANEL INDUSTRIAL TECHNICIAN procedure ar e in the results section. HEMOGRAM Routine 11/08/2016 3:16 PM Results f or this INDUSTRIAL TECHNICIAN procedure are i n the results section. LIPASE Routine 11/08/2016 3:16 PM Results f or this INDUSTRIAL TECHNICIAN procedure are i n the results section. THYROID STIMULATING Routine 11/08/2016 3:16 PM Re sults for this HORMONE INDUSTRIAL TECHNICIAN procedure are i n the results section. STREP A, MOLECULAR Routine 11/08/2016 3:03 PM Res ults for this DETECTION INDUSTRIAL TECHNICIAN procedure are i n the results section. STREP ANTIGEN SCREEN Routine 11/08/2016 3:03 PM R esults for this GRP A INDUSTRIAL TECHNICIAN procedure are i n the results section. CULTURE, URINE Routine 11/08/2016 2:35 PM Results for this INDUSTRIAL TECHNICIAN procedure are i n the results section. URINE MICROSCOPIC Routine 11/08/2016 2:35 PM Resu lts for this EXAMINATION INDUSTRIAL TECHNICIAN procedure are i n the results section. HCG, QUAL URINE Routine 11/08/2016 2:35 PM Result s for this INDUSTRIAL TECHNICIAN procedure are i n the results section. URINALYSIS, COMPLETE Routine 11/08/2016 2:35 PM R esults for this EXAM INDUSTRIAL TECHNICIAN procedure are i n the results section. documented in this encounter Results THYROID STIMULATING HORMONE (11/08/2016 3:16 PM INDUSTRIAL TECHNICIAN) athologist Signature Thyroid 2.38 0.35 - [facility] Stimulating 3.74 [facility] hormone uIU/mL LABORATORY Specimen Anatomical Collection Method Collection Time Receive d Time (Source) Location / / Volume Laterality 11/08/2016 3:16 PM 7 3:51 INDUSTRIAL TECHNICIAN PM INDUSTRIAL TECHNICIAN Narrative [facility] - 2016 3:51 PM INDUSTRIAL TECHNICIAN The above 1 analytes were performed by [facility] [address] [place] [address] [phone] Ruthann Sims PA-C EC CHEMISTRY ORDERABLES ABN Performing Organization Address City/State/ZIP Code Phon e Number [facility] [address] [place] [phone] HEMOGRAM (11/08/2016 3:16 PM INDUSTRIAL TECHNICIAN) athologist Signature WBC 10.0 4.0 - 11.0 [facility] x10 3/uL [facility] RBC 5.12 3.80 - 5.20 [facility] x10 6/uL [facility] HGB 15.7 12.0 - 16.0 [facility] g/dL [facility] HCT 43.5 35.0 - 47.0 [facility] % [facility] MCV 85 80 - 98 fL [facility] MCH 31 27 - 34 pg [facility] MCHC 36 32 - 36 [facility] g/dL [facility] PLT 301 150 - 420 [facility] x10 3/uL [facility] RDW-SD 37.9 36.5 - 46.3 [facility] fL [facility] RDW-CV 12.3 11.6 - 14.4 [facility] % [facility] Specimen Anatomical Collection Method Collection Time Receive d Time (Source) Location / / Volume Laterality 11/08/2016 3:16 PM 7 3:29 INDUSTRIAL TECHNICIAN PM INDUSTRIAL TECHNICIAN Narrative [facility] - 2016 3:29 PM INDUSTRIAL TECHNICIAN The above 10 analytes were performed by [facility] [address] [place] [address] Ruthann LEE-C EC HEMATOLOGY ORDERABLES Performing Organization Address [facility] [address]/[facility] Phon e Number [facility] [address] [place] [phone] LIPASE (11/08/2016 3:16 PM INDUSTRIAL TECHNICIAN) P athologist Signature Lipase 204 73 - 393 [facility] U/L [facility] Specimen Anatomical Collection Method Collection Time Receive d Time (Source) Location / / Volume Laterality 11/08/2016 3:16 PM 7 3:40 INDUSTRIAL TECHNICIAN PM INDUSTRIAL TECHNICIAN Narrative [facility] - 2016 3:40 PM INDUSTRIAL TECHNICIAN The above 1 analytes were performed by [facility] [address] [place] [phone] Ruthann LEE-C EC CHEMISTRY ORDERABLES Performing Organization Address [facility] [address]/[facility] Phon e Number [facility] [address] [place] [phone] DIFFERENTIAL AUTOMATED (11/08/2016 3:16 PM INDUSTRIAL TECHNICIAN) Analysis Performed At Patho logist Time Signature Neutrophils % 66.4 50.0 - [facility] 75.0 % [facility] Lymphocytes % 26.9 18.0 - [facility] 40.0 % [facility] Monocytes % 4.5 3.0 - 13.0 [facility] % [facility] Eosinophils % 1.5 0.0 - 5.0 [facility] % [facility] Basophils % 0.4 0.0 - 1.0 [facility] % [facility] Neutrophils 6.62 2.10 - [facility] Absolute 7.50 x10 [facility] 3/uL LABORATORY Lymphocytes 2.68 0.76 - [facility] Absolute 4.00 x10 [facility] 3/uL LAB[facility]ORY Monocytes 0.45 0.00 - [facility] Absolute 0.90 x10 [facility] 3/uL LAB[facility]ORY Eosinophils 0.15 0.15 - [facility] Absolute 0.30 x10 [facility] 3/uL LAB[facility]ORY Basophils 0.04 0.00 - [facility] Absolute 0.20 x10 [facility] 3/uL LAB[facility]ORY Nucleated RBC 0.0 0.0 - 0.0 [facility] /100 WBC'S [facility] Nucleated RBCs 0.00 0.00 - [facility] Absolute 0.00 x10 [facility] 3/uL LABOR[facility]ORY Immature 0.03 0.00 - [facility] Granulocytes 0.03 x10 [facility] Absolute 3/uL LABORATORY Granulocytes % 0.3 0.0 - 0.5 [facility] % [facility] Specimen Anatomical Collection Method Collection Time Receive d Time (Source) Location / / Volume Laterality 11/08/2016 3:16 PM 7 3:29 INDUSTRIAL TECHNICIAN PM INDUSTRIAL TECHNICIAN Narrative [facility] - 2016 3:29 PM INDUSTRIAL TECHNICIAN The above 14 analytes were performed by [facility] [address] [place] [phone] Ruthann GALLOWAY LABORATORY Performing Organization Address City/State/ZIP Code Phon e Number [facility] [address] [place] [phone] (ABNORMAL) COMPREHENSIVE METABOLIC PANEL (11/08/2016 3:16 PM INDUSTRIAL TECHNICIAN) [facility] Method Time Signature Sodium 137 136 - 145 [facility] mmol/L [facility] Potassium 4.1 3.5 - 5.1 [facility] mmol/L [facility] Chloride 100 98 - 107 [facility] mmol/L [facility] Bicarbonate (HCO3), 27 21 - 32 [facility] Venous mmol/L [facility] Calcium 9.2 8.5 - [facility] 10.1 [facility] mg/dL LABORATORY Alkaline Phosphatase 102 42 - 542 [facility] U/L [facility] Aspartate 13 (L) 15 - 37 [facility] Aminotransferase U/L [facility] Alanine 21 14 - 63 [facility] Aminotransferase U/L [facility] Glucose 113 (H) 74 - 100 [facility] mg/dL [facility] Blood Urea nitrogen 13 7 - 18 [facility] mg/dL [facility] Creatinine 0.66 0.51 - [facility] 0.95 [facility] mg/dL LABORATORY Protein, Total 8.0 6.4 - 8.2 [facility] g/dL [facility] Albumin 4.0 3.4 - 5.0 [facility] g/dL [facility] Bilirubin, Total 0.7 0.2 - 1.0 [facility] mg/dL [facility] Glomerular >60 60 - 150 [facility] Filtration Rate mL/min/1. [facility] 73m 2 LABORATORY Globulin 4.0 1.4 - 4.8 [facility] g/dL [facility] Specimen Anatomical Collection Method Collection Time Receive d Time (Source) Location / / Volume Laterality 11/08/2016 3:16 PM 7 3:40 INDUSTRIAL TECHNICIAN PM INDUSTRIAL TECHNICIAN Narrative [facility] - 11/08/2016 3:40 PM INDUSTRIAL TECHNICIAN Individuals with an estimsted GFR greater than (>) 60 l/min/1.73m 2 are classified as having a lower risk fo r kidney disease. Multiply X 1.159 if . ?? Valid in patients 18 years and older. The above 16 analytes were performed by [facility] [address] [place] [phone] Ruthann Sims PA-C CHEMISTRY ORDERABLES Performing Organization Address City/State/ZIP Code Phon e Number [place] [id number] [phone] LABORATORY STREP ANTIGEN SCREEN GRP A (11/08/2016 3:03 PM INDUSTRIAL TECHNICIAN) Analysis Performed At Patho logist [facility] Group A Strep Negative Negative [facility] Antigen [facility] Specimen Anatomical Collection Method Collection Time Receive d Time (Source) Location / / Volume Laterality 11/08/2016 3:03 PM 7 3:22 INDUSTRIAL TECHNICIAN PM INDUSTRIAL TECHNICIAN Narrative [facility] - 2016 3:22 PM INDUSTRIAL TECHNICIAN The above 1 analytes were performed by [facility] [address] [place] [phone] Ruthann E Bethany PA-C EC MICROBIOLOGY - GENERAL OR DERABLES Performing Organization Address [facility] Phon e Number [facility] [address] [place] [address] STREP A, MOLECULAR DETECTION (11/08/2016 3:03 PM INDUSTRIAL TECHNICIAN) [facility] Method Time Signature Streptococcus Negative Negative [facility] pyogenes (Group A [facility] Strep) LABORATORY Specimen Anatomical Collection Method Collection Time Receive d Time (Source) Location / / Volume Laterality 11/08/2016 3:03 PM 7 INDUSTRIAL TECHNICIAN 12:22 AM INDUSTRIAL TECHNICIAN Narrative [facility] - 2016 12:22 AM INDUSTRIAL TECHNICIAN The above 1 analytes were performed by [facility] [address] [place] [address] [phone] Ruthann Sims PA-C EC MICROBIOLOGY - GENERAL OR DERABLES Performing Organization Address [facility] Phon e Number [facility] [address] [place] [address] HCG, QUAL URINE (11/08/2016 2:35 PM INDUSTRIAL TECHNICIAN) athologist Signature hCG, Urine NEG [facility] Qualitative [facility] Specimen Anatomical Collection Method Collection Time Receive d Time (Source) Location / / Volume Laterality 11/08/2016 2:35 PM 7 2:53 INDUSTRIAL TECHNICIAN PM INDUSTRIAL TECHNICIAN Narrative [facility] - 2016 2:53 PM INDUSTRIAL TECHNICIAN The above 1 analytes were performed by [facility] [address] [place] [address] [phone] Paul Goodwin MD EC LABORATORY Performing Organization Address [facility] [address]/[facility] Phon e Number [facility] [address] [place] [phone] (ABNORMAL) URINE MICROSCOPIC EXAMINATION (11/08/2016 2:35 PM INDUSTRIAL TECHNICIAN) Analysis Performed At Patho logist Time Signature Urine WBC's 0-5 0 - 5 [facility] Urine RBC's 0-2 0 - 2 [facility] Urine OCC (A) NEG [facility] Epithelial [facility] Cells LABORATORY Urine Bacteria OCC (A) NEG [facility] Specimen Anatomical Collection Method Collection Time Receive d Time (Source) Location / / Volume Laterality 11/08/2016 2:35 PM 7 3:02 INDUSTRIAL TECHNICIAN PM INDUSTRIAL TECHNICIAN Narrative [facility] - 2016 3:02 PM INDUSTRIAL TECHNICIAN The above 4 analytes were performed by [facility] [address] [place] [address] [phone] Paul Goodwin MD EC URINE ORDERABLES Performing Organization Address City/[facility] [address]/[facility] Phon e Number [facility] [address] [place] [phone] (ABNORMAL) URINALYSIS, COMPLETE EXAM (11/08/2016 2:35 PM INDUSTRIAL TECHNICIAN) [facility] Method Time Signature Urine Specific 1.010 1.002 - [facility] [place] 1.030 [facility] Urine pH 6.0 5.0 - 8.0 [facility] [...] yellow [facility] Urine Appearance CLEAR [facility] Specimen Anatomical Collection Method Collection Time Receive d Time (Source) Location / / Volume Laterality 11/08/2016 2:35 PM 7 3:02 INDUSTRIAL TECHNICIAN PM INDUSTRIAL TECHNICIAN Narrative [facility] - 2016 3:02 PM INDUSTRIAL TECHNICIAN The above 12 analytes were performed by [facility] [address] [place] [address] [phone] Paul Goodwin MD EC URINE ORDERABLES Performing Organization Address [facility] [address]/[facility] Phon e Number [facility] [address] [place] [phone] CULTURE, URINE (11/08/2016 2:35 PM INDUSTRIAL TECHNICIAN) athologist Signature Urine Culture Report [facility] Specimen Anatomical Collection Method Collection Time Receive d Time (Source) Location / / Volume Laterality 11/08/2016 2:35 PM 7 8:47 INDUSTRIAL TECHNICIAN AM INDUSTRIAL TECHNICIAN [facility] CONVERSION LABORATORY - 2016 8:47 AM INDUSTRIAL TECHNICIAN Specimen/Source: Urine/Urine, ??Midstream Collected: 11/08/2016 14:35 Status: Final ?Last Updated: 01/2017 08:47 ??Result ?10,000-50,000 cfu/mL Mixed Gram Po sitive Usual Urogenital Vi ?Three or More Organisms Present in dicating Contamination The above 2 analytes were performed by [facility] [address] [place] [address] Ruthann GALLOWAY MICROBIOLOGY - GENERAL OR DERABLES Performing Organization Address City/State/ZIP Code Phon e Number [facility] documented in this encounter Visit Diagnoses Not on filedocumented in this encounter
--- OUTSIDE RECORDS SUMMARY | 2022-10-14 22:04 | XMS_ITS | Summary of Care ---
:1995 Author Organization [facility] s Address [facility] [address] [place] [address]- Encounter 12/31/15 - 01/02/16 [facility] [address] [place] [address]- Discharge Diagnosis: Screen for STD (sexually transmitted disease) Discharge Diagnosis: Vulvovaginal candidiasis Discharge Diagnosis: Vaginitis Attending Physician: Elvira Silver APRN Vital Signs Most recent to oldest [Reference Range]: 1 Weight 131.8 lb (12/31/15 3:04 PM) Temperature Tympanic [97.9-100.6 DegF] 98.2 DegF (12/31/15 3:04 PM) Blood Pressure [90-140/60-90 mmHg] 96/65 mmHg (12/31/15 3:04 PM) Mean Arterial Pressure 75 mmHg (12/31/15 3:04 PM) Peripheral Pulse Rate [60-100 bpm] 96 bpm (12/31/15 3:04 PM) Allergies Verified? Yes (12/31/15 3:04 PM) Medication History Verified? Yes (12/31/15 3:04 PM) Medical History Verified? Yes (12/31/15 3:04 PM) Problem List No data available for this section Allergies, Adverse Reactions, Alerts Substance Reaction Severity Status Augmentin XR headache Active vomiting lightheaded body ache Medications Diflucan 150 mg oral tablet 1 tab(s) ( 150 mg ), PO, Once, Instructions: Repeat X 1 in 3 days, # 2 tab(s), 0 Refill(s), Type: Soft Stop, Pharmacy: [id number], 1 tab(s) po once,Instr:Repeat X 1 in 3 days Start Date: 12/31/15 Status: OrderedLORazepam See Instructions, Instructions: prn, 0 Refill(s), Type: Maintenance Start Date: 12/31/15 Status: OrderedMirena 1 EA, intrauteral, once, 0 Refill(s), Type: Maintenance Start Date: 09/25/15 Status: Orderedparoxetine po, 0 Refill(s), Type: Maintenance Start Date: 09/25/15 Status: Ordered Results No data available for this section Immunizations No data available for this section Procedures No data available for this section Social History Social History Type Response Smoking Status Never smoker Assessment and Plan Extracted from: Title: Vaginal Discharge * Author: Elvira Silver APRN te: 12/31/15 Impression and Plan Diagnosis Screen for STD (sexually transmitted dis ease) ([id number] Z11.3). Vulvovaginal candidiasis ([id number] B37.3 ). Plan: 1) Diflucan Rx to [facility] 2) Await GC/Chlamydia 3) Safe sex practices discussed with pt. Condom use encouraged. 4) RTC if symptoms do not improve or wor sen.. Orders Orders Pharmacy: Diflucan 150 mg oral tablet (Prescribe): 1 tab(s) ( 150 mg ), PO, Once, Instructions: Repeat X 1 in 3 days, # 2 tab(s), 0 Refill(s), Type: Soft Stop, Pharmacy: [id number], 1 tab(s) po once,Instr:Repeat X 1 in 3 days.
--- OUTSIDE RECORDS SUMMARY | 2022-10-14 22:04 | XMS_ITS | Encounter Summary ---
:1995 Author Organization [employer] Address [address] [place] [phone] Phone Care Team Providers Name Role Phone Unavailable Primary Care Provider Unavailable Encounter Details Date Type Department Care Team Description 04/19/2020 RV Boone Conversion [facility] Jaziel Costa im Encounter [facility] EM[facility]Y W, DO DEPARTMENT [address] [place] [address] [place] [address] [phone] Social History Tobacco Use Types Packs/Day Years Used Date Smoking Tobacco: Never Assessed Sex Assigned at Date Recorded Not on file Job Start Date Occupation Industry Not on file Not on file Not on file documented as of this encounter Plan of Treatment Not on filedocumented as of this encounter Procedures Procedure Name Priority Date/Time Associated Comments Diagnosis DIFFERENTIAL Routine 04/19/2020 6:30 PM Results f or this AUTOMATED CDT procedure are i n the results section. BASIC METABOLIC PANEL Routine 04/19/2020 6:30 PM Results for this CDT procedure are i n the results section. HEMOGRAM Routine 04/19/2020 6:30 PM Results f or this CDT procedure are i n the results section. THYROID STIMULATING Routine 04/19/2020 6:30 PM Re sults for this HORMONE CDT procedure are i n the results section. GLUCOSE, METER Routine 04/19/2020 5:58 PM Results for this CDT procedure are i n the results section. documented in this encounter Results BASIC METABOLIC PANEL (04/19/2020 6:30 PM CDT) athologist Signature Sodium 141 136 - 145 [place] mmol/L [facility] Potassium 3.6 3.5 - 5.1 [place] mmol/L [facility] Chloride 105 98 - 107 [place] [facility] mmol/L [facility] Bicarbonate 28 21 - 32 [place] [facility] (HCO3), Venous mmol/L [facility] Calcium 8.9 8.5 - 10.1 [facility] mg/dL [facility] Glucose 89 74 - 100 [facility] [facility] mg/dL [facility] Blood Urea 17 7 - 18 [facility] [facility] nitrogen mg/dL [facility] Creatinine 0.71 0.51 - [place] 0.95 mg/dL [facility] Glomerular >60 60 - 150 [facility] Filtration Rate mL/min/1.[address] 2 LABORATORY Specimen Anatomical Collection Method Collection Time Receive d Time (Source) Location / / Volume Laterality 04/19/2020 6:30 PM 0 6:52 CDT PM CDT Narrative [facility] - 2019 6:52 PM CDT Individuals with an estimsted GFR greater than (>) 60 l/min/1.73m 2 are classified as having a lower risk fo r kidney disease. Multiply X 1.159 if . ?? Valid in patients 18 years and older. ?? The above 9 analytes were performed by [facility] [address] [place] [address] [phone] Sergio Vail PA-C EC CHEMISTRY ORDERABLES Performing Organization Address City/State/ZIP Code Phon e Number [facility] [address] [phone] THYROID STIMULATING HORMONE (04/19/2020 6:30 PM CDT) athologist Signature Thyroid 1.07 0.35 - [facility] Stimulating 3.74 [facility] uIU/mL LABORATORY Specimen Anatomical Collection Method Collection Time Receive d Time (Source) Location / / Volume Laterality 04/19/2020 6:30 PM 0 7:00 CDT PM CDT Narrative [facility] - 2019 7:00 PM CDT The above 1 analytes were performed by [facility] [address] [place] [address] [phone] Sergio Vail PA-C EC CHEMISTRY ORDERABLES ABN Performing Organization Address [facility] Phon e Number [place] [facility] [address] [place] [phone] DIFFERENTIAL AUTOMATED (04/19/2020 6:30 PM CDT) Analysis Performed At Patho logist Time Signature Neutrophils % 54.1 45.0 - [facility] 75.0 % [facility] Lymphocytes % 37.4 18.0 - [facility] 40.0 % [facility] Monocytes % 6.0 3.0 - 13.0 [facility] % [facility] Eosinophils % 2.0 0.0 - 5.0 [facility] % [facility] Basophils % 0.4 0.0 - 1.0 [facility] [facility] % [facility] Neutrophils 4.06 2.10 - [place] [facility] Absolute 7.50 x10 [facility] 3/uL [facility] Lymphocytes 2.81 0.76 - [place] [facility] Absolute 4.00 x10 [facility] 3/uL [facility] Monocytes 0.45 0.00 - [facility] Absolute 0.90 x10 [facility] 3/uL [facility] Eosinophils 0.15 0.04 - [facility] [facility] Absolute 0.54 x10 [facility] 3/uL [facility] Basophils 0.03 0.00 - [facility] [facility] Absolute 0.20 x10 [facility] 3/uL [facility] Immature 0.01 0.00 - [facility] Granulocytes 0.10 x10 [facility] Absolute 3/uL [facility] Granulocytes % 0.1 0.0 - 1.0 [facility] % [facility] Specimen Anatomical Collection Method Collection Time Receive d Time (Source) Location / / Volume Laterality 04/19/2020 6:30 PM 0 6:58 CDT PM CDT Narrative [place] [facility] - 2019 6:58 PM CDT The above 12 analytes were performed by [facility] [address] [place] [address] [phone] Sergio GALLOWAY [facility] Performing Organization Address [facility] Phon e Number [place] [facility] [address] [place] [address] [phone] HEMOGRAM (04/19/2020 6:30 PM CDT) athologist Signature WBC 7.5 4.0 - 11.0 [facility] [facility] x10 3/uL [facility] RBC 4.88 3.80 - 5.20 [facility] [facility] x10 6/uL [facility] HGB 14.6 12.0 - 16.0 [facility] [facility] g/dL [facility] HCT 41.9 35.0 - 47.0 [facility] [facility] % [facility] MCV 86 80 - 98 fL [place] [facility] MCH 30 27 - 34 pg [facility] MCHC 35 32 - 36 [facility] g/dL [facility] PLT 312 150 - 420 [facility] [facility] x10 3/uL [facility] RDW-SD 37.9 36.5 - 46.3 [facility] [facility] fL [facility] RDW-CV 11.8 11.6 - 14.4 [facility] % [facility] Specimen Anatomical Collection Method Collection Time Receive d Time (Source) Location / / Volume Laterality 04/19/2020 6:30 PM 0 6:58 CDT PM CDT Narrative [facility] - 2019 6:58 PM CDT The above 10 analytes were performed by [facility] [address] [place] [address] [phone] Sergio Vail PA-C EC HEMATOLOGY ORDERABLES Performing Organization Address City/[facility] Phon e Number [facility] [address] [place] [phone] (ABNORMAL) GLUCOSE, METER (04/19/2020 5:58 PM CDT) athologist Signature Glucose, Whole 101 (H) 74 - 100 [facility] Blood mg/dL [facility] Specimen Anatomical Collection Method Collection Time Receive d Time (Source) Location / / Volume Laterality 04/19/2020 5:58 PM 0 6:00 CDT PM CDT Narrative [facility] - 04/19/2020 6:00 PM CDT Cleaned Meter Doctor Notified The above 1 analytes were performed by [facility] [address] [place] [phone] Conversion Provider EC CHEMISTRY ORDERABLES Performing Organization Address City/[facility] Phon e Number [place] [phone] LABORATORY documented in this encounter Visit Diagnoses Not on filedocumented in this encounter
--- OUTSIDE RECORDS SUMMARY | 2022-10-14 22:04 | XMS_ITS | Encounter Summary ---
:1995 Author Organization [employer] Address [address] [address] Phone Care Team Providers Name Role Phone Unavailable Primary Care Provider Unavailable Encounter Details Date Type Department Care Team Description 06/12/2018 RV [place] Conversion [facility] EM[facility]GENCY L, MD DEPARTMENT [facility] [address] [place] [address] [place] [address] [phone] Social History Tobacco Use Types Packs/Day Years Used Date Smoking Tobacco: Never Assessed Sex Assigned at Date Recorded Not on file Job Start Date Occupation Industry Not on file Not on file Not on file documented as of this encounter Plan of Treatment Not on filedocumented as of this encounter Procedures Procedure Name Priority Date/Time Associated Comments Diagnosis CT ABDOMEN PELVIS W Routine 06/13/2018 1:00 AM Re sults for this IV CONTRAST CDT procedure are i n the results section. CULTURE, URINE Routine 06/12/2018 11:57 Results f or this PM CDT procedure are i n the results section. DIFFERENTIAL Routine 06/12/2018 12:13 Results for this AUTOMATED AM CDT procedure are i n the results section. C REACTIVE PROTEIN Routine 06/12/2018 12:13 Resul ts for this AM CDT procedure are i n the results section. BASIC METABOLIC PANEL Routine 06/12/2018 12:13 Re sults for this AM CDT procedure are i n the results section. HEPATIC FUNCTION Routine 06/12/2018 12:13 Results for this PANEL AM CDT procedure are i n the results section. HEMOGRAM Routine 06/12/2018 12:13 Results for this AM CDT procedure are i n the results section. LIPASE Routine 06/12/2018 12:13 Results for this AM CDT procedure are i n the results section. URINE MICROSCOPIC Routine 06/12/2018 12:02 Result s for this EXAMINATION AM CDT procedure are i n the results section. HCG, QUAL URINE Routine 06/12/2018 12:02 Results for this AM CDT procedure are i n the results section. URINALYSIS, COMPLETE Routine 06/12/2018 12:02 Res ults for this EXAM AM CDT procedure are i n the results section. documented in this encounter Results CT ABDOMEN PELVIS W IV CONTRAST (06/13/2018 1:00 AM CDT) Anatomical Region Laterality Modality Abdomen, Pelvis Computed Tomography Specimen Anatomical Collection Method Collection Time Receive d Time (Source) Location / / Volume Laterality 06/13/2018 1:00 AM 8 1:00 CDT AM CDT Narrative 06/13/2018 12:40 AM CDT INDICATION: Upper abdominal pain ?? TECHNIQUE: CT abdomen and pelvis acquired with IV c ontrast. 100 cc Omnipaque COMPARISON: 09/13/2012 FINDINGS: Lower chest: Unremarkable. ?? Liver: Unremarkable. ?? Spleen: Unremarkable. ?? Pancreas: Unremarkable. ?? Gallbladder and bile ducts: Contracted g allbladder. . ?? Kidneys: Unremarkable. ?? Adrenal glands: Unremarkable. ?? GI tract: Diffuse colonic fecal retentio n. ??Appendix is not visualized. Normal. Vascular structures: Unremarkable. ?? Lymph nodes: Unremarkable. ?? Miscellaneous: Unremarkable. ??No free a ir or significant free fluid. ?? Pelvic Organs: Diffuse bladder wall thic kening. Bones: Unremarkable for age. ?? IMPRESSION: Diffuse colonic fecal retention. Contracted gallbladder. Diffuse bladder wall thickening. ??Corre late with cystitis clinically. Dictated by Fernando Lynch MD @ 8 1:16:25 AM Please note that all CT scans at this [facility] use dose modulation, iterative reconstruction, and/or weight-based dosi ng when appropriate to reduce radiation dose to as low as reasonably achievable. Dictated by: Fernando Lynch MD @ 2017 01:16:36 Electronically Signed Reported By/ Electronically Signed By: FERNANDO MCGOWAN MD Date: ??06/13/2018 01:16 Procedure Note Philly Ennis MD - 05/17/2021Forma tting of this note might be different from the original. INDICATION: Upper abdominal pain TECHNIQUE: CT abdomen and pelvis acquired with IV c ontrast. 100 cc Omnipaque COMPARISON: 09/13/2012 FINDINGS: Lower chest: Unremarkable. Liver: Unremarkable. Spleen: Unremarkable. Pancreas: Unremarkable. Gallbladder and bile ducts: Contracted g allbladder. . Kidneys: Unremarkable. Adrenal glands: Unremarkable. GI tract: Diffuse colonic fecal retentio n. Appendix is not visualized. Normal. Vascular structures: Unremarkable. Lymph nodes: Unremarkable. Miscellaneous: Unremarkable. No free air or significant free fluid. Pelvic Organs: Diffuse bladder wall thic kening. Bones: Unremarkable for age. IMPRESSION: Diffuse colonic fecal retention. Contracted gallbladder. Diffuse bladder wall thickening. Correla te with cystitis clinically. Dictated by Fernando Lynch MD @ 1:16:25 AM Please note that all CT scans at this [facility] use dose modulation, iterative reconstruction, and/or weight-based dosi ng when appropriate to reduce radiation dose to as low as reasonably achievable. Dictated by: Fernando Lynch MD @ 2017 01:16:36 Electronically Signed Reported By/ Electronically Signed By: FERNANDO MCGOWAN MD Date: 06/13/2018 01:16 Philly En[address] MD EC [address] ORDERABLES CULTURE, URINE (06/12/2018 11:57 PM CDT) athologist Signature Urine Culture Report [facility] Specimen Anatomical Collection Method Collection Time Receive d Time (Source) Location / / Volume Laterality 06/12/2018 11:57 06/15/2018 PM CDT 10:00 AM CDT Narrative [facility] - 2017 10:00 AM CDT Specimen/Source: Urine/Urine, ??Voided Collected: 06/12/2018 23:57 Status: Final ?Last Updated: 06/2018 10:00 ??Result ?50,000 cfu/ml Mixed Gram Positive Vi , Three or More Organisms ?Present indicating Contamination The above 1 analytes were performed by [facility] [address] [place] [address] Philly Ennis MD EC MICROBIOLOGY - GENERAL OR DERABLES Performing Organization Address City/[facility] Code Phon e Number [facility] DIFFERENTIAL AUTOMATED (06/12/2018 12:13 AM CDT) Analysis Performed At Patho logist Time Signature Neutrophils % 51.0 45.0 - [facility] 75.0 % [facility] Lymphocytes % 38.7 18.0 - [facility] 40.0 % [facility] Monocytes % 7.1 3.0 - 13.0 [facility] % [facility] Eosinophils % 2.7 0.0 - 5.0 [facility] % [facility] Basophils % 0.4 0.0 - 1.0 [facility] % [facility] Neutrophils 4.80 2.10 - [facility] Absolute 7.50 x10 [facility] 3/uL [facility] Lymphocytes 3.64 0.76 - [facility] Absolute 4.00 x10 [facility] 3/uL [facility] Monocytes 0.67 0.00 - [facility] Absolute 0.90 x10 [facility] 3/uL [facility] Eosinophils 0.25 0.04 - [facility] Absolute 0.54 x10 [facility] 3/uL [facility] Basophils 0.04 0.00 - [facility] Absolute 0.20 x10 [facility] 3/uL [facility] Nucleated RBC 0.0 0.0 - 0.0 [facility] /100 WBC'S [facility] Nucleated RBCs 0.00 0.00 - [facility] Absolute 0.00 x10 [facility] 3/uL [facility] Immature 0.01 0.00 - [facility] Granulocytes 0.10 x10 [facility] 3/uL [facility] Granulocytes % 0.1 0.0 - 1.0 [facility] % [facility] Specimen Anatomical Collection Method Collection Time Receive d Time (Source) Location / / Volume Laterality 06/12/2018 12:13 06/13/2018 AM CDT 12:19 AM CDT Narrative [facility] - 2017 12:19 AM CDT The above 14 analytes were performed by [facility] [address] [place] [address],[address],o[place]mi[place]ISHA [address] Philly Ennis MD EC LABORATORY Performing Organization Address City/[facility] Phon e Number [facility] [address] [place] [phone] HEMOGRAM (06/12/2018 12:13 AM CDT) P athologist Signature WBC 9.4 4.0 - 11.0 [facility] x10 3/uL [facility] RBC 5.09 3.80 - 5.20 [facility] x10 6/uL [facility] HGB 15.4 12.0 - 16.0 [facility] g/dL [facility] HCT 43.6 35.0 - 47.0 [facility] % [facility] MCV 86 80 - 98 fL [facility] MCH 30 27 - 34 pg [facility] MCHC 35 32 - 36 [facility] g/dL [facility] PLT 268 150 - 420 [facility] x10 3/uL [facility] RDW-SD 38.6 36.5 - 46.3 [facility] fL [facility] RDW-CV 12.3 11.6 - 14.4 [place] [facility] % [facility] Specimen Anatomical Collection Method Collection Time Receive d Time (Source) Location / / Volume Laterality 06/12/2018 12:13 06/13/2018 AM CDT 12:19 AM CDT Narrative [facility] - 2017 12:19 AM CDT The above 10 analytes were performed by [facility] [address] [place] [address] [phone] Philly Ennis MD EC HEMATOLOGY ORDERABLES Performing Organization Address [facility]/ZIP [facility] Phon e Number [facility] [address] [place] [phone] C REACTIVE PROTEIN (06/12/2018 12:13 AM CDT) P athologist Signature C-Reactive <0.05 0.00 - [facility] Protein 0.33 mg/dL [facility] Specimen Anatomical Collection Method Collection Time Receive d Time (Source) Location / / Volume Laterality 06/12/2018 12:13 06/13/2018 AM CDT 12:[address] [facility] - 2017 12:32 AM CDT The above 1 analytes were performed by Two [facility] [address] [place] [address],[place] [phone] Philly Ennis MD EC CHEMISTRY ORDERABLES Performing Organization Address [facility] Phon e Number [facility] [address] [place] [phone] (ABNORMAL) HEPATIC FUNCTION PANEL (06/12/2018 12:13 AM CDT) Patholo gist Method Time Signature Alkaline Phosphatase 100 46 - 116 [facility] U/L [facility] Aspartate 14 (L) 15 - 37 [facility] Aminotransferase U/L [facility] Alanine 20 14 - 63 [facility] Aminotransferase U/L [facility] Protein, Total 7.7 6.4 - 8.2 [facility] g/dL [facility] Albumin 4.0 3.4 - 5.0 [facility] g/dL [facility] Bilirubin, Direct 0.11 0.00 - [facility] O 0.20 [facility] mg/dL LABORATORY Bilirubin, Total 0.4 0.2 - 1.0 [facility] mg/dL [facility] Specimen Anatomical Collection Method Collection Time Receive d Time (Source) Location / / Volume Laterality 06/12/2018 12:13 06/13/2018 AM CDT 12:32 AM CDT Narrative [facility] - 2017 12:32 AM CDT The above 7 analytes were performed by Two [facility] [address] [place] [address] 7710 Philly Ennis MD EC CHEMISTRY ORDERABLES Performing Organization Address [facility] Phon e Number [facility] [address] [place] [phone] LIPASE (06/12/2018 12:13 AM CDT) P athologist Signature Lipase 178 73 - 393 [facility] U/L [facility] Specimen Anatomical Collection Method Collection Time Receive d Time (Source) Location / / Volume Laterality 06/12/2018 12:13 06/13/2018 AM CDT 12:32 AM CDT Narrative [facility] - 2017 12:32 AM CDT The above 1 analytes were performed by Two [facility] [address] [place] [address] [phone] Philly Ennis MD EC CHEMISTRY ORDERABLES Performing Organization Address [facility] Phon e Number [facility] [address] [place] [phone] (ABNORMAL) BASIC METABOLIC PANEL (06/12/2018 12:13 AM CDT) Analysis Performed At [facility] Time Signature Sodium 139 136 - 145 [facility] mmol/L [facility] Potassium 3.8 3.5 - 5.1 [facility] mmol/L [facility] Chloride 102 98 - 107 [facility] mmol/L [facility] Bicarbonate 29 21 - 32 [facility] (HCO3), Venous mmol/L [facility] Calcium 9.4 8.5 - 10.1 [facility] mg/dL [facility] Glucose 88 74 - 100 [facility] mg/dL [facility] Blood Urea 20 (H) 7 - 18 [facility] nitrogen mg/dL [facility] Creatinine 0.72 0.51 - [facility] 0.95 mg/dL [facility] Glomerular >60 60 - 150 [facility] Filtration Rate mL/min/1.[address] 2 LABORATORY Specimen Anatomical Collection Method Collection Time Receive d Time (Source) Location / / Volume Laterality 06/12/2018 12:13 06/13/2018 AM CDT 12:32 AM CDT Narrative [facility] - 2017 12:32 AM CDT Individuals with an estimsted GFR greater than (>) 60 l/min/1.73m 2 are classified as having a lower risk fo r kidney disease. Multiply X 1.159 if . ?? Valid in patients 18 years and older. ?? The above 9 analytes were performed by [facility] [address] [place] [address] [phone] Philly Ennis MD EC CHEMISTRY ORDERABLES Performing Organization Address [facility] Phon e Number [facility] [address] [place] [address] [phone] (ABNORMAL) URINE MICROSCOPIC EXAMINATION (06/12/2018 12:02 AM CDT) Analysis Performed At [facility] Time Signature Urine WBC's 0-5 0 - 5 [facility] Urine RBC's 0-2 0 - 2 [facility] Urine OCC (A) NEG [facility] Epithelial [facility] Cells [facility]ORY Urine Bacteria OCC (A) NEG [facility] Amorphous MANY [facility] Crystals, Urine [facility] Specimen Anatomical Collection Method Collection Time Receive d Time (Source) Location / / Volume Laterality 06/12/2018 12:02 06/13/2018 AM CDT 12:26 AM CDT Narrative [facility] - 2017 12:26 AM CDT The above 5 analytes were performed by Two [facility] [address] [place] [address] 8426 Philly Ennis MD EC URINE ORDERABLES Performing Organization Address [facility] Phon e Number [facility] [address] [place] [address] HCG, QUAL URINE (06/12/2018 12:02 AM CDT) athologist Signature hCG, Urine NEG NEG [place] [facility] Qualitative [facility] Specimen Anatomical Collection Method Collection Time Receive d Time (Source) Location / / Volume Laterality 06/12/2018 12:02 06/13/2018 AM CDT 12:16 AM CDT Narrative [facility] - 2017 12:16 AM CDT The above 1 analytes were performed by Two [facility] [address] [place] [address] 6787 Philly Ennis MD EC LABORATORY Performing Organization Address [facility] Phon e Number [facility] [address] [place] [phone] (ABNORMAL) URINALYSIS, COMPLETE EXAM (06/12/2018 12:02 AM CDT) [facility] gist Method Time Signature Urine Specific 1.015 1.005 - [facility] [place] 1.030 [facility] Urine pH 7.0 5.0 [...] [facility] Urine Appearance CLOUDY [place] [facility] Specimen Anatomical Collection Method Collection Time Receive d Time (Source) Location / / Volume Laterality 06/12/2018 12:02 06/13/2018 AM CDT 12:26 AM CDT Narrative [facility] - 2017 12:26 AM CDT The above 12 analytes were performed by Two [facility] [address] [place] [address] [phone] Philly Ennis MD EC URINE ORDERABLES Performing Organization Address City/State/ZIP Code Phon e Number [facility] [address] [place] [address] [phone] documented in this encounter Visit Diagnoses Not on filedocumented in this encounter
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
--- OUTSIDE RECORDS SUMMARY | 2022-10-14 22:04 | XMS_ITS | Encounter Summary ---
:1995 Author Organization [employer] Address [address] [address] Phone Care Team Providers Name Role Phone Unavailable Primary Care Provider Unavailable Encounter Details Date Type Department Care Team Description 04/26/2020 RV [facility] Conversion [facility] EMERGENCY DMD DEPARTMENT [address] [address] [place] [address] [phone] Social History Tobacco Use Types Packs/Day Years Used Date Smoking Tobacco: Never Assessed Sex Assigned at Date Recorded Not on file Job Start Date Occupation Industry Not on file Not on file Not on file documented as of this encounter Plan of Treatment Not on filedocumented as of this encounter Procedures Procedure Name Priority Date/Time Associated Diagnosis Comme nts D-DIMER Routine 04/26/2020 7:04 PM Results f or this CDT procedure are i n the results section . documented in this encounter Results (ABNORMAL) D-DIMER (04/26/2020 7:04 PM CDT) P athologist Signature D-Dimer <0.22 (L) 0.22 - [facility] 0.50 mg/L [facility] Specimen Anatomical Collection Method Collection Time Receive d Time (Source) Location / / Volume Laterality 04/26/2020 7:04 PM 0 7:32 CDT PM CDT Narrative [facility] - 04/26/2020 7:32 PM CDT Result is mg/L FEU (Fibrinogen Equivalent Units) D-Dimer is elevated in DVT,PE, and DIC, however, D-Dimer in NOT specific for DVT and PE and therefore, cannot be applied as a sole confirmatory marker. ??D-Dimer should be used as an a pedro luis in diagnosis. ??An [facility] laboratory study showed that the cutoff value of 0.5 mg/L FEU has a 100% negative predictive value. The above 1 analytes were performed by [facility] [address] [place] [id number] Jeffrey Pierre MD EC HEMATOLOGY ORDERABLES Performing Organization Address City/State/ZIP Code Phon e Number [address] [phone] LABORATORY documented in this encounter Visit Diagnoses Not on filedocumented in this encounter
--- OUTSIDE RECORDS SUMMARY | 2022-10-14 22:04 | XMS_ITS | Clinical Summary ---
:1995 Author Organization [employer] Address [address] [address] Phone Care Team Providers Name Role Phone Gregg Augustine MD Primary Care Provider Allergies Active Allergy Reactions Severity Noted Date Comments Adhesive Tape RASH Medium 11/02/2021 Latex RASH Medium 11/02/2021 Medications Medication Sig Dispensed Refills Start Date End Date Status SUMAtriptan (Imitrex) Take 100 mg by 0 Active 100 MG mouth one time as tabletIndications: needed for Migraine, yesterday Migraine. Dose may be repeated after 2 hours. Do not exceed 200 mg in 24 hours Indications: Migraine Headache, yesterday Acetaminophen Take 650 mg by 0 A ctive (Tylenol) 325 MG mouth. CapsuleIndications: Indications: 0700 0700 [id number] Buffered Take 1 Tablet by 0 Active (Vanquish) [id number] mouth. MG TabletIndications: Indications: 0700 0700 LORazepam (Ativan) 0.5 Take 0.5 mg by 0 Active MG tablet mouth every six hours as needed for Anxiety. Social History Tobacco Use Types Packs/Day Years Used Date Smoking Tobacco: Never Smokeless Tobacco: Never Alcohol Use Standard Drinks/Week Comments Yes 0 (1 standard drink = 0.6 oz pure alcoho l) Sex Assigned at Date Recorded Not on file Job Start Date Occupation Industry Not on file Not on file Not on file Obstetrics History Last Filed Vital Signs Vital Sign Reading Time Taken Comments Blood Pressure 113/70 12/12/2021 6:55 PM GRADUATE TEACHING ASSISTANT Pulse 72 12/12/2021 6:55 PM GRADUATE TEACHING ASSISTANT Temperature 36.4 ??C (97.5 ??F) 12/12/2021 6:55 PM GRADUATE TEACHING ASSISTANT Respiratory Rate 14 12/12/2021 6:55 PM GRADUATE TEACHING ASSISTANT Oxygen Saturation 100% 12/12/2021 6:55 PM GRADUATE TEACHING ASSISTANT Inhaled Oxygen Concentration - - Weight - - Height - - Body Mass Index - - Plan of Treatment Health Maintenance Due Date Last Done Comments Cervical Cancer Screening 1997 Last pap w/ HPV Testing 1997 Last pap w/o HPV Testing 1997 COVID-19 Vaccine (#1) 1997 HPV Vaccine female (Standing 2006 Order) (1 - 2-dose series) PERTUSSIS (Standing Order) 2016 TETANUS (Standing Order) 2016 Influenza Vaccine Seasonal 07/09/2022 (Standing Order) (#1) Chlamydia Screening Discontinued 11/09/2017, 06/24/2017, 07/25/2016 Pneumococcal/PCV Vaccine: Aged Out No concepcion tom eligible based Pediatrics (0-5 yrs) and on ent's age to At-Risk Patients (6-64 yrs) comp lete this topic (Standing Order) Insurance Payer Benefit Plan / Subscriber ID Effective Dates Phone Addre ss Type Group JAIME SANDOVAL [id number] 2020-Present [phone] [address] [id number] [place] [id number] [id number] (Home) [facility] [id number] Care Teams Crystal Inspector Relationship Specialty Start Date End Date Gregg Augustine MD PCP - General electrician substation 11/02/[address] [place] [id number]
--- OUTSIDE RECORDS SUMMARY | 2022-10-14 22:04 | XMS_ITS | Summary of Care ---
:1995 Author Organization [facility] s Address [facility] [address] [place] [address]- Encounter 12/31/15 - 12/31/15 [facility] [address] [place] [address]- Vital Signs No data available for this section Problem List No data available for this section Allergies, Adverse Reactions, Alerts Substance Reaction Severity Status Augmentin XR headache Active vomiting lightheaded body ache Medications Diflucan 150 mg oral tablet 1 tab(s) ( 150 mg ), PO, Once, Instructions: Repeat X 1 in 3 days, # 2 tab(s), 0 Refill(s), Type: Soft Stop, Pharmacy: [facility] [id number], 1 tab(s) po once,Instr:Repeat X 1 in 3 days Start Date: 12/31/15 Status: OrderedLORazepam See Instructions, Instructions: prn, 0 Refill(s), Type: Maintenance Start Date: 12/31/15 Status: OrderedMirena 1 EA, intrauteral, once, 0 Refill(s), Type: Maintenance Start Date: 09/25/15 Status: Orderedparoxetine po, 0 Refill(s), Type: Maintenance Start Date: 09/25/15 Status: Ordered Results Microbiology Most recent to oldest [Reference Range]: 1 Wet Prep Yeast Present (12/31/15 3:48 PM) Wet Prep Trichomonas None Seen (12/31/15 3:48 PM) Wet Prep Clue Cells None Seen (12/31/15 3:48 PM) Immunizations No data available for this section Procedures No data available for this section Social History Social History Type Response Smoking Status Never smoker Assessment and Plan No data available for this section
--- OUTSIDE RECORDS SUMMARY | 2022-10-14 22:04 | XMS_ITS | Encounter Summary ---
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 documented as of this encounter Plan of Treatment Not on filedocumented as of this encounter Visit Diagnoses Not on filedocumented in this encounter Care Teams Radar Tester Relationship Specialty Start Date End Date Gregg Augustine MD PCP - General operations support manager 11/02/[address] [facility] [id number] documented as of this encounter
--- OUTSIDE RECORDS SUMMARY | 2022-10-14 22:04 | XMS_ITS | Summary of Care ---
:1997 Author Organization [facility] s Address [facility] [address] [place] [address]- Encounter 12/31/15 - 01/02/16 [facility] [address] [place] [address]- Discharge Diagnosis: Screen for STD (sexually transmitted [...] tab(s), 0 Refill(s), Type: Soft Stop, Pharmacy: [facility] [id number], 1 tab(s) po once,Instr:Repeat X 1 in [...] Screen for STD (sexually transmitted dis ease) (OXG62-BK Z11.3). Vulvovaginal candidiasis (OIN63-QW B37.3 ). Plan: 1) Diflucan Rx to [facility] 2) Await GC/Chlamydia 3) Safe sex practices discussed with pt. Condom use encouraged. 4) RTC if symptoms do not improve or wor sen.. Orders Orders Pharmacy: Diflucan 150 mg oral tablet (Prescribe): 1 tab(s) ( 150 mg ), PO, Once, Instructions: Repeat X 1 in 3 days, # 2 tab(s), 0 Refill(s), Type: Soft Stop, Pharmacy: [facility] [id number], 1 tab(s) po once,Instr:Repeat X 1 in 3 days.
--- OUTSIDE RECORDS SUMMARY | 2022-10-14 22:04 | XMS_ITS | Encounter Summary ---
:1995 Author Organization [employer] Address [address] [address] Phone Care Team Providers Name Role Phone Unavailable Primary Care Provider Unavailable Encounter Details Date Type Department Care Team Description 07/25/2016 [place] [facility] EMERGENCY M, PA-C DEPARTMENT [address] [address] [place] [address] [phone] Social History Tobacco Use Types Packs/Day Years Used Date Smoking Tobacco: Never Assessed Sex Assigned at Date Recorded Not on file Job Start Date Occupation Industry Not on file Not on file Not on file documented as of this encounter Plan of Treatment Not on filedocumented as of this encounter Procedures Procedure Name Priority Date/Time Associated Comments Diagnosis CHLAMYDIA Routine 07/25/2016 2:18 PM Results f or this TRACHOMATIS/NEISSERIA CDT proced ure are in GONORRHOEAE MOLECULAR the re sults DETECTION section. TRICHOMONAS AND YEAST Routine 07/25/2016 2:18 PM Results for this CDT procedure are i n the results section. URINE MICROSCOPIC Routine 07/25/2016 2:17 PM Resu lts for this EXAMINATION CDT procedure are i n the results section. HCG, QUAL URINE Routine 07/25/2016 2:17 PM Result s for this CDT procedure are i n the results section. URINALYSIS, COMPLETE Routine 07/25/2016 2:17 PM R esults for this EXAM CDT procedure are i n the results section. documented in this encounter Results CHLAMYDIA TRACHOMATIS/NEISSERIA GONORRHOEAE MOLECULAR DETECTION (07/25/2016 2:18 PM CDT) Patholo gist Method Time Signature Chlamydia Negative Negative [facility] trachomatis [facility] N gonorrhoeae, Negative Negative [facility] PCR [facility] Specimen Anatomical Collection Method Collection Time Receive d Time (Source) Location / / Volume Laterality 07/25/2016 2:18 PM 6 1:06 CDT AM CDT Narrative [facility] - 07/29/2016 1:06 AM CDT Performed at: ??[facility] ??[id number] Refrigerating Oiler: Jaron Wilson MD, Phone: ? ?[phone] The above 2 analytes were performed by [facility] [address] [place] [address] RD D,ACCT [id number],[place] [address] Meme Atkinson PA-C EC MICROBIOLOGY - GENERAL OR DERABLES Performing Organization Address City/State/ZIP Code Phon e Number [facility] (ABNORMAL) TRICHOMONAS AND YEAST (07/25/2016 2:18 PM CDT) P athologist Signature WBC, Wet Prep Few [facility] Yeast, Wet None None [facility] Clue Cells, Few (A) None [facility] Wet Prep [facility] Trichomonas, None None [facility] Wet prep [facility] Specimen Anatomical Collection Method Collection Time Receive d Time (Source) Location / / Volume Laterality 07/25/2016 2:18 PM 6 2:39 CDT PM CDT Narrative [facility] - 2015 2:39 PM CDT Specimen Source: Vagina The above 4 analytes were performed by [facility] [address] [place] [address] [place] [address] Meme Atkinson PA-C EC MICROBIOLOGY - GENERAL OR DERABLES Performing Organization Address City/[facility]/ZIP [facility] Phon e Number [facility] [address] [place] [phone] (ABNORMAL) URINE MICROSCOPIC EXAMINATION (07/25/2016 2:17 PM CDT) [facility] Method Time Signature Urine WBC's 0-5 0 - 5 [facility] Urine RBC's 2-8 (A) 0 - 2 [facility] Urine MODERATE (A) NEG [facility] Epithelial [facility] Urine Bacteria OCC (A) NEG [facility] Specimen Anatomical Collection Method Collection Time Receive d Time (Source) Location / / Volume Laterality 07/25/2016 2:17 PM 6 2:45 CDT PM CDT Narrative [facility] - 2015 2:45 PM CDT The above 4 analytes were performed by [facility] [address] [place] [phone] Meme Atkinson PA-C EC URINE ORDERABLES Performing Organization Address City/State/ZIP Code Phon e Number [facility] [address] [place] [phone] (ABNORMAL) URINALYSIS, COMPLETE EXAM (07/25/2016 2:17 PM CDT) [facility] Method Time Signature Urine Specific 1.015 1.002 - [facility] [place] 1.030 [facility] Urine pH 6.5 5.0 - 8.0 [facility] Urine Leukocyte + (A) neg [facility] Esterase [facility] Urine Nitrates neg neg [facility] Urine Protein neg neg [facility] Urine Glucose neg neg [facility] Urine Ketones neg neg [facility] Urine norm norm mg/dL [facility] Urobilinogen [facility] Urine Bilirubin neg neg [facility] Urine Blood ++ (A) neg [facility] UA Color yellow [facility] Urine Appearance CLEAR [facility] Specimen Anatomical Collection Method Collection Time Receive d Time (Source) Location / / Volume Laterality 07/25/2016 2:17 PM 6 2:45 CDT PM CDT Narrative [facility] - 2015 2:45 PM CDT The above 12 analytes were performed by [facility] [address] [place] [address] Meme Atkinson PA-C EC URINE ORDERABLES Performing Organization Address [facility] Phon e Number [facility] [address] [place] [address] HCG, QUAL URINE (07/25/2016 2:17 PM CDT) athologist Signature hCG, Urine NEG [facility] Qualitative [facility] Internal Kit QC [facility] Specimen Anatomical Collection Method Collection Time Receive d Time (Source) Location / / Volume Laterality 07/25/2016 2:17 PM 6 2:38 CDT PM CDT Narrative [facility] - 2015 2:38 PM CDT The above 2 analytes were performed by [facility] [address] [place] [phone] Meme Atkinson PA-C EC LABORATORY Performing Organization Address [facility] Phon e Number [facility] [address] [place] [address] documented in this encounter Visit Diagnoses Not on filedocumented in this encounter
--- OUTSIDE RECORDS SUMMARY | 2022-10-14 22:05 | XMS_ITS | Summary of Care ---
:1997 Author Organization [facility] s Address [facility] s [facility] [address] [place] [address]- Encounter 12/31/15 - 01/02/16 [facility] [address] [place] [address]- Attending Physician: Not Primary Clinic Vital Signs No data available for this section Problem List No data available for this section Allergies, Adverse Reactions, Alerts Substance Reaction Severity Status Augmentin XR headache Active vomiting lightheaded body ache Medications Diflucan 150 mg oral tablet 1 tab(s) ( 150 mg ), PO, Once, Instructions: Repeat X 1 in 3 days, # 2 tab(s), 0 Refill(s), Type: Soft Stop, Pharmacy: [facility] [id number], 1 tab(s) po once,Instr:Repeat X 1 in [...]
--- OUTSIDE RECORDS SUMMARY | 2022-10-14 22:05 | XMS_ITS | Summary of Care ---
:1995 Author Organization [facility] s Address [facility] [place] [address] [place] [address]- Encounter 09/25/15 - 09/27/15 [facility] [address] [place] [address]- Discharge Diagnosis: Cold Discharge Diagnosis: Acute maxillary sinusitis Attending Physician: Bassem Michael MD Vital Signs Most recent to oldest [Reference Range]: 1 Height 67 in (09/25/15 2:40 PM) Weight 136 lb (09/25/15 2:40 PM) Body Mass Index 21.3 kg/m2 (09/25/15 2:40 PM) BSA 1.71 m2 (09/25/15 2:40 PM) Temperature Tympanic [97.9-100.6 DegF] 97.9 DegF (09/25/15 2:40 PM) Blood Pressure [90-140/60-90 mmHg] 102/70 mmHg (09/25/15 2:40 PM) Mean Arterial Pressure 81 mmHg (09/25/15 2:40 PM) Peripheral Pulse Rate [60-100 bpm] 76 bpm (09/25/15 2:40 PM) Oxygen Saturation [94-100 %] 99 % (09/25/15 2:40 PM) Allergies Verified? Yes (09/25/15 2:40 PM) Medication History Verified? Yes (09/25/15 2:40 PM) Medical History Verified? Yes (09/25/15 2:40 PM) Problem List No data available for this section Allergies, Adverse Reactions, Alerts No Known Medication Allergies Medications Augmentin 875 mg-125 mg oral tablet 1 tab(s), po, q12 hrs, # 14 tab(s), 0 Refill(s), Type: Maintenance, Pharmacy: [id number], 1 tab(s) po q12 hrs,x7 day(s) Start Date: 09/25/15 Stop Date: 10/02/15 Status: OrderedMirena 1 EA, intrauteral, once, 0 Refill(s), Type: Maintenance Start Date: 09/25/15 Status: Orderedparoxetine po, 0 Refill(s), Type: Maintenance Start Date: 09/25/15 Status: OrderedTessalon 200 mg oral capsule 1 cap(s) ( 200 mg ), PO, TID, # 42 cap(s), 0 Refill(s), Type: Maintenance, Pharmacy: [facility] [employer] [facility] #[id number], 1 cap(s) po tid,x14 day(s) Start Date: 09/25/15 Stop Date: 10/09/15 Status: Ordered Results No data available for this section Immunizations No data available for this section Procedures No data available for this section Social History Social History Type Response Smoking Status Never smoker Assessment and Plan Extracted from: Title: URI Author: Bassem Michael MD Date: 09/25/15 Impression and Plan Diagnosis Cold (RNC87-IN J00). Acute maxillary sinusitis (HHP79-SB J01. 00). - duration of symptoms and localizing of sinus symptoms raises suspicions for superimposed bacterial sinusitis - Rx for Augmentin x 1 week - currently having some success with sle eping when using Nyquil; can supplement with Tessalone perles during the day
--- OUTSIDE RECORDS SUMMARY | 2022-10-14 22:05 | XMS_ITS | Summary of Care ---
:1995 Author Organization [facility] s Address [facility] s [facility] [address] [place] [address]- Encounter 12/31/15 - 01/02/16 [facility] [address] [place] [address]- Attending Physician: Not Primary Clinic Vital Signs [...] tab(s), 0 Refill(s), Type: Soft Stop, Pharmacy: [facility] [id number], 1 tab(s) po once,Instr:Repeat X 1 in [...]
--- OUTSIDE RECORDS SUMMARY | 2022-10-14 22:05 | XMS_ITS | Summary of Care ---
:1995 Author Organization [facility] s Address [facility] [address] [place] [address]- Encounter 12/31/15 - 12/31/15 [facility] [address] [place] [address]- Vital Signs No data available for this section Problem List No data available for this section Allergies, Adverse Reactions, Alerts Substance Reaction Severity Status Augmentin XR headache Active vomiting lightheaded body ache Medications Diflucan 150 mg oral tablet 1 tab(s) ( 150 mg ), PO, Once, Instructions: Repeat X 1 in 3 days, # 2 tab(s), 0 Refill(s), Type: Soft Stop, Pharmacy: [facility] [id number], 1 tab(s) po once,Instr:Repeat X 1 in [...]
--- OUTSIDE RECORDS SUMMARY | 2022-10-14 22:05 | XMS_ITS | Summary of Care ---
:1995 Author Organization [facility] s Address [facility] s [facility] [address] [place] [address]- Encounter 12/31/15 - 01/02/16 [facility] [address] [place] [address]- Attending Physician: Not Primary Clinic Vital Signs [...] tab(s), 0 Refill(s), Type: Soft Stop, Pharmacy: [facility] [id number], 1 tab(s) po once,Instr:Repeat X 1 in [...]
--- OUTSIDE RECORDS SUMMARY | 2022-10-14 22:05 | XMS_ITS | Summary of Care ---
:1995 Author Organization [facility] s Address [facility] [address] [place] [address]- Encounter 12/31/15 - 01/02/16 [facility] [address] [place] [address]- Discharge Diagnosis: Screen for STD (sexually transmitted [...] tab(s), 0 Refill(s), Type: Soft Stop, Pharmacy: [facility] [id number], 1 tab(s) po once,Instr:Repeat X 1 in [...] Screen for STD (sexually transmitted dis ease) (RQY04-VP Z11.3). Vulvovaginal candidiasis (BXX95-BL B37.3 ). Plan: 1) Diflucan Rx to [facility] 2) Await GC/Chlamydia 3) Safe sex practices discussed with pt. Condom use encouraged. 4) RTC if symptoms do not improve or wor sen.. Orders Orders Pharmacy: Diflucan 150 mg oral tablet (Prescribe): 1 tab(s) ( 150 mg ), PO, Once, Instructions: Repeat X 1 in 3 days, # 2 tab(s), 0 Refill(s), Type: Soft Stop, Pharmacy: [facility] [id number], 1 tab(s) po once,Instr:Repeat X 1 in 3 days.
--- OUTSIDE RECORDS SUMMARY | 2022-10-14 22:05 | XMS_ITS | Summary of Care ---
:1995 Author Organization [facility] s Address [facility] [place] [address] [place] [address]- Encounter 09/25/15 - 09/27/15 [facility] [address] [place] [address]- Discharge Diagnosis: Cold Discharge Diagnosis: Acute maxillary [...] 14 tab(s), 0 Refill(s), Type: Maintenance, Pharmacy: [id number], 1 tab(s) po q12 hrs,x7 day(s) Start Date: 09/25/15 Stop Date: 10/02/15 Status: OrderedMirena 1 EA, intrauteral, once, 0 Refill(s), Type: Maintenance Start Date: 09/25/15 Status: Orderedparoxetine po, 0 Refill(s), Type: Maintenance Start Date: 09/25/15 Status: OrderedTessalon 200 mg oral capsule 1 cap(s) ( 200 mg ), PO, TID, # 42 cap(s), 0 Refill(s), Type: Maintenance, Pharmacy: [facility] #[id number], 1 cap(s) po tid,x14 day(s) Start Date: 09/25/15 Stop Date: 10/09/15 Status: Ordered Results No data available for this section Immunizations No data available for this section Procedures No data available for this section Social History Social History Type Response Smoking Status Never smoker Assessment and Plan Extracted from: Title: URI Author: Bassem Michael MD Date: 09/25/15 Impression and Plan Diagnosis Cold (UGJ60-AI J00). Acute maxillary sinusitis (GPO85-XE J01. 00). - duration of symptoms and localizing of sinus symptoms raises suspicions for superimposed bacterial sinusitis - Rx for Augmentin x 1 week - currently having some success with sle eping when using Nyquil; can supplement with Tessalone perles during the day
--- OUTSIDE RECORDS SUMMARY | 2022-10-14 22:05 | XMS_ITS | Summary of Care ---
:1995 Author Organization [facility] s Address [facility] [address] [place] [address]- Care Team Providers Name Role Phone Unavailable Primary Care Physician Unavailable Encounter(s) 09/25/15 [facility] [address] [place] [address]- Attending Physician: Alec REARDON, Bassem 11/08/08 - 11/08/08 [facility] [address] [place] [address]- Attending Physician: Not Primary Clinic Vital Signs Most recent to oldest [Reference [...] 14 tab(s), 0 Refill(s), Type: Maintenance, Pharmacy: [facility] #[id number], 1 tab(s) po q12 hrs,x7 day(s) Start Date: 09/25/15 Stop Date: 10/02/15 Status: OrderedMirena 1 EA, intrauteral, once, 0 Refill(s), Type: Maintenance Start Date: 09/25/15 Status: Orderedparoxetine po, 0 Refill(s), Type: Maintenance Start Date: 09/25/15 Status: OrderedTessalon 200 mg oral capsule 1 cap(s) ( 200 mg ), PO, TID, # 42 cap(s), 0 Refill(s), Type: Maintenance, Pharmacy: [facility] #[id number], 1 cap(s) po tid,x14 day(s) Start Date: 09/25/15 Stop Date: 10/09/15 Status: Ordered Results No data available for this section Immunizations No data available for this section Procedures No data available for this section Social History Social History Type Response Smoking Status Never smoker Assessment and Plan No data available for this section
[2022-10-14 22:08] LABS: Slide Review Reflex No
[2022-10-14 22:11] LABS: Chloride* 108 mmol/L (96-114)
[2022-10-14 22:12] LABS: Potassium* 4.4 mmol/L (3.6-5.1); Sodium* 142 mmol/L (135-149)
[2022-10-14 22:13] LABS: Mono Screen* Negative (Negative)
[2022-10-14 22:14] LABS: Creatinine* 0.6 mg/dL (0.5-1.5); Est. Creatinine Clearance* 131.37; Estimated Glomerular Filt Rate 128 ml/min
[2022-10-14 22:15] LABS: Blood Urea Nitrogen* 11 mg/dL (5-24); Calcium* 9.3 mg/dL (8.4-10.6); Carbon Dioxide* 26 mmol/L (20-32); Glucose* 91 mg/dL (60-115)
[2022-10-14 22:17] LABS: PCR FLU A Negative PCR FLU A (Negative); PCR FLU B Negative PCR FLU B (Negative); PCR RSV Negative PCR RSV (Negative)
[2022-10-14 22:34] LABS: SARS PCR* Negative SARS-CoV-2 (Negative)
[2022-10-14] MEDS: dexAMETHasone 10 MG/ML inj IVP (23:10)
[2022-10-14] MEDS: LORazepam 2 MG/ML inj 0.5 MG IVP (23:10)
[2022-10-14] MEDS: AMPICILLIN/SULBACTAM 3 GM in 0.9 % SODIUM CHLORIDE Mini-bag 100 ML IVPB (23:10)
== END 2022-10-14 23:40 | disposition home or self-care (01) ==
PROVIDERS: Emergency Provider Family Medicine
DX: J03.90 Acute tonsillitis, unspecified (principal)
CPT/HCPCS: 36415; 80048; 85025; 86308; 87502; 87634; 87635; 87651; 96361; 96374; 96375; 99284; J0295; J1100; J1885; J2060; J7030

== ENCOUNTER 2023-12-31 18:25 | Emergency (ER) | payer OTHER, SELFPAY ==
[2023-12-31] VITALS (8 sets, daily range): BP systolic 109–121; BP diastolic 73–82; PULSE 60–98; RESP 16; TEMP 36.7; O2SAT 98–100; BMI 20.2
--- NOTE | 2023-12-31 19:38 | CT_ITS ---
Patient: AMY JAUREGUI Facility:?[facility] Patient ID:?[id number] Site Patient ID:?[id number]. Site :?1995 Study:?CT-Head WO-12/31/2023 8:29:35 PM Ordering Physician:MORRO Final Report: INDICATION: FAINTING EPISODES, KNOWN CHIARI MALFORMATION. TECHNIQUE: CT head without contrast. COMPARISON: None. FINDINGS: CSF spaces: Within normal limits for age. Brain parenchyma and extra-axial spaces: The galan-white differentiation is normal. No sign of mass, hemorrhage, or midline shift. No extra-axial fluid collection. There is calcification in the distal right internal carotid artery and proximal right M1 segment of the MCA. Skull base and calvarium: The visualized paranasal sinuses and mastoid air cells demonstrate no acute or significant findings. The visualized orbits are grossly unremarkable. No skull fractures. IMPRESSION: No acute intracranial process identified. Calcifications in the distal right internal carotid artery and proximal right M1 segment of the MCA, premature for age. Consider further evaluation with non- emergent MRI/MRA or CTA. Please note that all CT scans at this facility use dose modulation, iterative reconstruction, and/or weight-based dosing when appropriate to reduce radiation dose to as low as reasonably achievable. Dictated by Ousmane Armijo MD @ 12/31/2023 8:45:52 PM Signed by:?Ousmane Armijo MD @12/31/2023 8:45:52 PM (Electronic Signature)
[2023-12-31] MEDS: LACTATED RINGERS 1000 ML 1,000 ML IV (19:50)
[2023-12-31] MEDS: ONDANSETRON 2 MG/ML inj 4 MG IVP (19:50)
[2023-12-31 20:19] LABS: Hematocrit 37.9 % (33.0-51.0); Hemoglobin* 13.2 gm/dL (12.0-16.0); Mean Corpuscular HGB Conc 35 gm/dL (32-36); Mean Corpuscular Hemoglobin 30 pg (26-34); Mean Corpuscular Volume 85 fL (80-100); Platelet Count* 306 K/uL (140-440); RDW Coefficient of Variation % 11.8 % (11.5-15.5); Red Blood Count 4.47 m/uL (4.00-5.20); White Blood Count* 9.19 K/uL (4.50-11.00)
[2023-12-31 20:20] LABS: Slide Review Reflex No
[2023-12-31 20:38] LABS: Albumin* 4.3 g/dL (3.3-5.0); Chloride* 106 mmol/L (96-114); Sodium* 137 mmol/L (135-149)
[2023-12-31 20:39] LABS: Potassium* 3.6 mmol/L (3.6-5.1)
[2023-12-31 20:41] LABS: Alanine Aminotransferase* 15 U/L (4-35); Alkaline Phosphatase* 72 U/L (40-150); Anion Gap 12 mEq/L (7-15); Aspartate Amino Transferase* 20 U/L (12-35); Bilirubin Total* 0.7 mg/dL (0.1-1.5); Blood Urea Nitrogen* 17 mg/dL (5-24); Carbon Dioxide* 19 mmol/L (20-32); Creatinine* 0.6 mg/dL (0.5-1.5); Est. Creatinine Clearance* 127.18; Estimated Glomerular Filt Rate 127 ml/min; Glucose* 82 mg/dL (60-115); Total Protein* 7.5 g/dL (6.0-8.3)
--- NOTE | 2023-12-31 20:50 | ED.GENADULT ---
HPI - General Adult General Date Seen: 12/31/23 Chief complaint: Weakness Stated complaint: Almost fainted clukn-[id number] vision Time Seen by Provider: 12/31/23 19:17 Source: patient Mode of arrival: ambulatory Limitations: no limitations History of Present Illness HPI narrative: Patient is a 28-year-old female presenting to the emergency department for near syncope episodes. Patient states today around 1245 she bent over and then stood back up and felt very lightheaded insert her vision went dark. She slowly sat down and then symptoms resolved. They states not long after same thing happened again so she went home to relax for a little while on her lunch break to see if symptoms was go way. She has continued to feel lightheaded and went to urgent care. She had symptoms like this in the past but they have never been this bad she states. She is in recovery for anorexia and does states she has been doing well and been having a healthy weight gain. She has been eating and drinking normally today she states. Is feeling nauseated. Denies fevers, chills, chest pain, shortness of breath, numbness, abdominal pain, diarrhea, constipation. Has had some nausea but has not had any vomiting. She also states that she will have occasional double vision. Symptoms and most part come and go and are not always there. She is not symptomatic at this time. She does have a history of a chiari malformation and was concerned that this could be causing her symptoms. She last had evaluated 2 or 3 years ago. Related Data Home Medications Medication Instructions Recorded Confirmed control 10/14/22 sumatriptan succinate 100 mg 100 mg PO Q2H PRN 10/14/22 10/14/22 tablet (Imitrex) sumatriptan succinate 6 mg/0.5 mL 6 mg subcut Q1-4H PRN 10/14/22 10/14/22 subcutaneous solution (Imitrex) Previous Rx's Medication Instructions Recorded meclizine 25 mg tablet 25 mg PO QID #20 tabs 12/31/23 Allergies Allergy/AdvReac Type Severity Reaction Status Date / Time No Known Drug Allergies Allergy Verified 12/31/23 18:48 Review of Systems Status of ROS: Reports: 10 or more systems reviewed and unremarkable except as noted in History and below PFSH PFSH Social History Smoking Status: Never smoker Do you use any of these nicotine containing products: None Second hand tobacco smoke exposure: No How often do you have a drink containing alcohol: never How often do you have six or more drinks on one occasion: Never AUDIT-C Alcohol total score: 0 Non-prescribed substance use: denies use service: No Exam Narrative: Exam Narrative: Const: Well-nourished, Well-developed, in mild distress Eyes: PERRL, no conjunctival injection, and symmetrical lids HENT: Atraumatic external nose and ears. Moist mucous membranes. Neck: Symmetric, trachea midline, No thyromegaly. CVS: RRR, No murmurs or gallops. Peripheral pulses 2+ and equal in all extremities RESP: Unlabored respiratory effort. Clear to auscultation bilaterally. GI: Nontender/Nondistended, No rebound or guarding. MSK:Extremities w/o deformity, Normal Active ROM Skin: Warm, Dry. No rashes or lesions. Neuro: Normal Muscle tone, No focal neurological deficits. Psych: Awake, Alert, & Oriented x3. Appropriate mood and affect. Const: Vital Signs, click to edit/add: Vital Signs - 24 hr 12/31/23 18:44 12/31/23 19:53 Temperature 98.1 F Pulse Rate [Right Pulse Oximeter] 98 Pulse Rate [orthos tatic lying Pulse Oximeter] 67 Pulse Rate [orthos tatic sitting Puls e Oximeter] 71 Pulse Rate [orthos tatic standing Pul se Oximeter] 89 Respiratory Rate 16 Blood Pressure [Ri ght Upper Arm] 121/82 Blood Pressure [or thostatic lying Le ft Arm] 114/73 Blood Pressure [or thostatic sitting Left Arm] 118/77 Blood Pressure [or thostatic standing Left Arm] 117/82 Pulse Oximetry 98 Oxygen Delivery Me thod Room Air Course Vital Signs Vital signs: Initial Vital Signs Temperature 98.1 F 12/31/23 18:44 Temperature Source Temporal Artery Scan 12/31/23 18:44 Pulse Rate 98 12/31/23 18:44 Pulse Rhythm Regular 12/31/23 18:44 Pulse Strength 3+ Normal 12/31/23 18:44 Respiratory Rate 16 12/31/23 18:44 Blood Pressure 121/82 12/31/23 18:44 Blood Pressure Mean 95 12/31/23 18:44 Blood Pressure Position Sitting 12/31/23 18:44 Pulse Oximetry 98 12/31/23 18:44 Oxygen Delivery Method Room Air 12/31/23 18:44 Vital Signs Temperature 98.1 F 12/31/23 18:44 Pulse Rate 98 12/31/23 18:44 Respiratory Rate 16 12/31/23 18:44 Blood Pressure 121/82 12/31/23 18:44 Pulse Oximetry 98 12/31/23 18:44 Oxygen Delivery Method Room Air 12/31/23 18:44 Temperature 98.1 F 12/31/23 18:44 Pulse Rate 67 12/31/23 19:53 Respiratory Rate 16 12/31/23 18:44 Blood Pressure 114/73 12/31/23 19:53 Pulse Oximetry 98 12/31/23 18:44 Oxygen Delivery Method Room Air 12/31/23 18:44 Medications Administered Medications: Discontinued Medications Generic Name Dose Route Start Last Admin Trade Name Freq PRN Reason Stop Dose Admin Lactated Ringer's 1,000 mls @ 1,000 mls/hr 12/31/23 19:37 12/31/23 19:50 Lactated Ringers 1000 Ml IV 12/31/23 20:36 1,000 mls/hr .Q1H ONE Administration Ondansetron HCl 4 mg 12/31/23 19:37 12/31/23 19:50 Ondansetron 2 Mg/Ml Inj IVP 12/31/23 19:38 4 mg ONCE ONE Administration Medical Decision Making [facility] Narrative Medical decision making narrative: Patient is a 28-year-old female presenting to the emergency department for near syncope the like episodes. She does have a history of the chiari malformation and while unlikely herniation could be causing the symptoms. I did explain to her the risk versus benefits of having these multiple CTs done on her brain at her age. She understands and is agreeable to the CT scan. Will also give her L fluid this dehydration might be causing some of her symptoms. EKG and troponin order to the for signs of ACS. CBC and CMP also ordered. Patient's lab work all returned showing no concerning abnormalities. EKG shows no concerning abnormalities. Troponin within normal limits. Orthostatic blood pressures were within normal limits. Her pulse rate did increase from 67 to 89 between lying down and standing. She had not received her fluids yet at this time. CT scan of the head was reviewed by myself and the radiologist showing no obvious causes of what is causing symptoms. They did note that she has some calcification lower distal right internal carotid artery and proximal right M1 segment of the MCA which would be premature considering her age. Is recommended to have not emergent MRI/MRA versus a CTA outpatient. After speaking to her again she states she is still feeling symptomatic when she moves but symptoms are better when she lays down. On further interview she says the symptoms feel like she is on about and she has noticed while in the emergency department that she will have increased symptoms with movement of her head. This makes me believe this might be more vertigo related and will prescribe her meclizine. I did speaking with the other hospital of the possible admission under observation status but they do not seem too interested in this option at this time. I spoke to her and her mother and they feel comfortable with discharge at this time. Lab Data Labs: Lab Results 12/31/23 Range/Units 20:05 WBC 9.19 (4.50-11.00) K/uL RBC 4.47 (4.00-5.20) m/uL Hgb 13.2 (12.0-16.0) gm/dL Hct 37.9 (33.0-51.0) % MCV 85 (80-100) fL MCH 30 (26-34) pg MCHC 35 (32-36) gm/dL RDW Coeff of Isidro 11.8 (11.5-15.5) % Plt Count 306 (140-440) K/uL Neut % (Auto) Not Reportable Lymph % (Auto) Not Reportable Morton % (Auto) Not Reportable Eos % (Auto) Not Reportable Baso % (Auto) Not Reportable Neut # (Auto) Not Reportable Lymph # (Auto) Not Reportable Morton # (Auto) Not Reportable Eos # (Auto) Not Reportable Baso # (Auto) Not Reportable Sodium 137 (135-149) mmol/L Potassium 3.6 (3.6-5.1) mmol/L Chloride 106 (96-114) mmol/L Carbon Dioxide 19 L (20-32) mmol/L Anion Gap 12 (7-15) mEq/L BUN 17 (5-24) mg/dL Creatinine 0.6 (0.5-1.5) mg/dL Estimated Creat Clear 127.18 Estimated GFR 127 ml/min Glucose 82 (60-115) mg/dL Calcium 9.0 (8.4-10.6) mg/dL Total Bilirubin 0.7 (0.1-1.5) mg/dL AST 20 (12-35) U/L ALT 15 (4-35) U/L Alkaline Phosphatase 72 (40-150) U/L Total Protein 7.5 (6.0-8.3) g/dL Albumin 4.3 (3.3-5.0) g/dL SARS-CoV-2 (PCR) Negative SARS-CoV-2 (Negative) Influenza Type A (PCR) Negative PCR FLU A (Negative) Influenza Type B (PCR) Negative PCR FLU B (Negative) RSV (PCR) Negative PCR RSV (Negative) POC Troponin I 0.00 L (0.01-0.04) ng/ml Discharge Plan Discharge Clinical Impression: Dizziness, Near syncope Patient Disposition: Home, Self-Care Condition: Stable Instructions: Vertigo (DC), POTS (Postural Orthostatic Tachycardia Syndrome) (ED) Additional Instructions: His take meclizine as directed and return to the emergency department his symptoms are getting worse or develops any new symptoms. If they do seem to persist in ER able to tolerate them I recommend following up with your primary care provider on Wednesday. Of note on your CT scan they did see some calcifications within some of the vessels that would be unexpected in a person of your age and it is recommended he follow-up imaging with your primary care provider about this Prescriptions: New meclizine 25 mg tablet 25 mg PO QID Qty: 20 0RF No Action control sumatriptan succinate [Imitrex] 100 mg tablet 100 mg PO Q2H PRN Rx Instructions: do not exceed 2 doses per 24 hrs sumatriptan succinate [Imitrex] 6 mg/0.5 mL solution 6 mg subcut Q1-4H PRN Rx Instructions: do not exceed 2 doses in a 24 hour period Follow Up/Referrals: Provider,Not a Local [Primary Care Provider] - Stand Alone Forms: MyHealth Info Instructions
[2023-12-31 20:58] LABS: PCR FLU A Negative PCR FLU A (Negative); PCR FLU B Negative PCR FLU B (Negative); PCR RSV Negative PCR RSV (Negative); SARS PCR* Negative SARS-CoV-2 (Negative)
[2023-12-31] MEDS: MECLIZINE HCL 25 MG TABLET PO (21:17)
== END 2023-12-31 21:37 | disposition home or self-care (01) ==
PROVIDERS: Emergency Provider Student in an Organized Health Care Education/Training Program
DX: R42 Dizziness and giddiness (principal); R55 Syncope and collapse
CPT/HCPCS: 36415; 70450; 80053; 84484; 85025; 87631; 93005; 96374; 99283; 99284; 99285; A9270; J2405; J7120